=== PATIENT | male | born 1950 | race Caucasian/White ===

== ENCOUNTER 2019-08-12 14:29 | Inpatient (IN) | payer MEDICARE ==
[~2019-08-12] VITALS: Ht 180.3 cm; Wt 77.1 kg
[2019-08-12 13:40] VITALS: BP 233/121
[2019-08-12] MEDS ORDERED: LABETALOL HCL 100 MG TABLET. PO ONE (16:30)
[2019-08-12] MEDS ORDERED: ACETAMINOPHEN 325 MG TABLET. PO PRN (16:30)
[2019-08-12] MEDS ORDERED: ASPIRIN RECTAL 300 MG SUPP. PR PRN (16:30)
[2019-08-12] MEDS ORDERED: ACETAMINOPHEN 650 MG SUPP.RECT. PR PRN (16:30)
[2019-08-12 19:00] VITALS: BP 187/97
[2019-08-12 19:30] VITALS: BP 176/105
[2019-08-12 19:45] VITALS: BP 198/105
[2019-08-12 20:00] VITALS: BP 187/103
[2019-08-12] MEDS ORDERED: LABETALOL HCL 100 MG TABLET. PO SCH (21:00)
--- NOTE | 2019-08-12 21:28 | RAD ---
CT HEAD WO CONTRAST History: Change in NIH scale Comparison: Exam earlier the same day. Technique: Noncontrast CT imaging was performed of the head. Exposure: One or more of the following individualized dose reduction techniques were utilized for this examination: 1. Automated exposure control 2. Adjustment of the mA and/or kV according to patient size 3. Use of iterative reconstruction technique. Findings: No acute intracranial hemorrhage is identified. There is again scattered ill-defined low-density of the supratentorial parenchyma bilaterally, also old left basal ganglia lacunar infarct. However there appears to be a slightly greater degree of ill-defined low-density now of the right frontal parietal lobes. There are again old left cerebellar lacunar infarcts. There is also small old left temporal infarct with cortical involvement. Impression: 1. There is no evidence of acute intracranial hemorrhage. While subtle, ill-defined low-density of the right frontal parietal lobes appears somewhat increased which could be due to more recent/evolving ischemia. There are again old lacunar infarcts of the left cerebellum and left basal ganglia, also small old left temporal infarct. There is other ill-defined low-density of the supratentorial parenchyma likely component of chronic microvascular ischemic disease. Findings were discussed with patient's nurse Saul at 08/12/2019 9:25 PM. Electronically signed by: Tate Robb MD (08/12/2019 9:25 PM) [facility]
[2019-08-12 22:54] VITALS: BP 235/121
[2019-08-13 03:50] VITALS: BP 218/104
[2019-08-13 06:49] LABS: CHOLESTEROL/HDL RATIO 4.6
[2019-08-13 07:00] VITALS: BP 191/104
[2019-08-13] MEDS: ASPIRIN ENTERIC COATED 325 MG TABLET.DR. PO SCH (08:00)
--- NOTE | 2019-08-13 10:18 | RAD ---
BRAIN W/O CONTRAST History: CVA. Neurological deficits. Technique: Multiplanar, multi sequential MR imaging was performed of the brain without contrast. Comparison: CT August 12, 2019. Findings: Acute left paramedian frontoparietal infarcts distal ANNETTE and distal PHYSICIAN SUPPORT COORDINATOR territory. No acute intracranial hemorrhage. Chronic left basal ganglia lacunar infarct with hemosiderin staining. Chronic left cerebellar infarct with hemosiderin staining. Additional bilateral cerebellar small infarcts. Chronic left genu of the corpus callosum and left pericallosal body interface infarcts. Moderate additional multifocal T2/flair hyperintensities within the hemispheric white matter, most often due to chronic microvascular ischemia. Small chronic left posterior temporal infarct. Imaged orbits are unremarkable. Imaged paranasal sinuses and mastoid air cells are clear. Impression: 1. Acute left paramedian frontoparietal lobe infarcts. 2. Multiple supratentorial and infratentorial chronic infarcts. 3. Moderate sequela of chronic microvascular ischemia. FOR INTERNAL CODING PURPOSES Critical result: Findings discussed with patient's charge nurse at 08/13/2019 10:11 AM. RESULT CODE: (C) Electronically signed by: Kristian Lomax DO (08/13/2019 10:15 AM) [email or web address]
[2019-08-13 11:00] VITALS: BP 210/114
[2019-08-13] MEDS ORDERED: BARIUM SULFATE 40% (APPLE) 148 GM PWD. PO ONE (11:30)
--- NOTE | 2019-08-13 11:59 | PDOC2 ---
NEUROLOGY CONSULT Date of Admission Date of Admission DATE: 08/13/19 TIME: 11:47 Reason for Consult Reason for Consult: Stroke Referring Physician Referring Physician: Dr. Still Source Source: Caregiver, Chart review History of Present Illness History of Present Illness The patient is a 69-year-old right-handed male who presented yesterday to the [facility] emergency room. He had wakened at 1 AM and didn't feel quite right but went back to sleep. When he woke up later in the morning, he noticed dysarthria, ataxia, and bilateral leg weakness. He had trouble getting his words and thoughts out. I was not contacted about this patient until he reached [address], at 16:06. I wrote stroke orders. At 19:49, I was contacted that the patient had increased NIH scale. I ordered stat repeat CT and CTA as reviewed below. He continues to have right hemiplegia and aphasia. There is no prior history of stroke, seizure, or head injury according to his . Patient has been noncompliant with his blood pressure medicines. Past Medical History Cardiovascular: HTN ENT: Other (Dental problems) Past Surgical History Past Surgical History: Tonsillectomy Family History Family History: Cancer Social History Social History , works odd jobs at times, no tobacco or alcohol Current Medications Current Medications Current Medications Labetalol HCl (Trandate) 100 mg TID PO ; Start 08/12/19 at 21:00; Stop 08/13/19 at 08:18; Status DC Acetaminophen (Tylenol) 650 mg PRN Q6HRS PRN PO TEMP > 100.4F; Start 08/12/19 at 16:30 Acetaminophen (Tylenol Supp) 650 mg PRN Q4HRS PRN ND TEMP > 100.4F; Start 08/12/19 at 16:30 Aspirin (Ecotrin) 325 mg DAILYWBKFT PO ; Start 08/13/19 at 08:00 Aspirin (Aspirin Rectal Supp) 300 mg PRN DAILY PRN ND IF UNABLE TO TAKE PO Last administered on 08/13/19at 11:00; Start 08/12/19 at 16:30 Labetalol HCl (Trandate) 100 mg 1X ONCE PO Last administered on 08/12/19at 16: 45; Start 08/12/19 at 16:30; Stop 08/12/19 at 20:01; Status DC Barium Sulfate (Varibar Thin Liquid Apple) 148 gm 1X ONCE PO ; Start 08/13/19 at 11:30; Stop 08/13/19 at 11:31; Status DC Allergies Allergies: Coded Allergies: egg (Verified Allergy, Severe, Diarrhea, 08/12/19) melon (Verified Allergy, Severe, Diarrhea, 08/12/19) strawberry (Verified Allergy, Severe, Diarrhea, 08/12/19) Penicillins (Verified Allergy, Intermediate, 08/12/19) ROS Review of System Negative for fever, chills, weight loss, shortness of breath, chest pain, in digestion, hematochezia, melena, and dysuria. Full 14-point review of systems is negative. Physical Exam Physical Examination General: Well-developed, well-nourished white male in no acute distress HEENT: Normocephalic andatraumatic. Temporal arteriespulsatile and nontender. Neck: Supple without bruit, no meningismus Musculoskeletal: Stability:see neurologic. Gait exam:see neurologic. Tone:see neurologic.Strength:see neurologic. Neurological: Mental Status:orientation, memory, attention span/concentration, language, fund of knowledge: aphasic, follows a few commands. Cranial Nerves:Pupils equal and reactive to light, extraocular movements areintact, visual tripp are full to confrontation. Facial sensation is normal. There is no facial asymmetry. Vestibulo-ocular reflex is intact. Palate elevates and tongue protrudes in midline. All other cranial related problems are negative except as mentioned before.Reflexes:2+ and symmetric with flexor plantar responses. Motor:1/5 right hemiplegia. Coordination:Finger-nose finger and [id number] testing are normal. Rapid alternating movements and fine finger movements are intact. Gait:not tested. Sensory: responds to pinprick in all 4 extremities Vitals VITALS Vital Signs Date Time Temp Pulse Resp B/P (MAP) Pulse Ox O2 Delivery O2 Flow Rate FiO2 08/13/19 07:00 98.6 84 16 191/104 (133) 94 Room Air 98.6 Labs Labs Laboratory Tests Test 08/13/19 05:56 Triglycerides Level 87 mg/dL (0-150) Cholesterol Level 193 mg/dL (0-200) LDL Cholesterol, Calculated 134 mg/dL (0-100) VLDL Cholesterol, Calculated 17 mg/dL (0-40) Non-HDL Cholesterol Calculated 151 mg/dL (0-129) HDL Cholesterol 42 mg/dL (40-60) Cholesterol/HDL Ratio 4.6 Laboratory Tests Test 08/13/19 05:56 Triglycerides Level 87 mg/dL (0-150) Cholesterol Level 193 mg/dL (0-200) LDL Cholesterol, Calculated 134 mg/dL (0-100) VLDL Cholesterol, Calculated 17 mg/dL (0-40) Non-HDL Cholesterol Calculated 151 mg/dL (0-129) HDL Cholesterol 42 mg/dL (40-60) Cholesterol/HDL Ratio 4.[address] CODE STROKE HEAD WO, 08/12 at [facility] CT CODE STROKE HEAD WO History: Neuro deficits Comparison: None. Technique: Noncontrast CT imaging was performed of the head. Exposure: One or more of the following individualized dose reduction techniques were utilized for this examination: 1. Automated exposure control 2. Adjustment of the mA and/or kV according to patient size 3. Use of iterative reconstruction technique. Findings: No intracranial hemorrhage. No mass effect. No hydrocephalus. Chronic appearing bilateral small cerebellar infarcts. Chronic appearing left basal ganglia and left genu corpus callosal and periventricular frontal white matter infarcts. Moderate foci of decreased attenuation within hemispheric white matter, most often due to chronic microvascular ischemia. Focal hypoattenuation within the left posterior temporal/occipital lobe (series 2 image 13). Imaged orbits are unremarkable. Imaged paranasal sinuses and mastoid air cells are clear. Impression: 1. No acute intracranial hemorrhage. 2. Focal hyperattenuation within the left posterior temporal/occipital lobe, age indeterminant ischemia. Recommend brain MRI to further evaluate. 3. Chronic appearing bilateral cerebellar, left basal ganglia and left frontal periventricular infarcts. 4. Additional nonspecific white matter changes, most often due to chronic microvascular ischemia. CT ANGIOGRAPHY HEAD AND NECK, 08/12 at [facility] History: Speech difficulty and ataxia Technique: After bolus of intravenous contrast, volumetric CT data acquisition was acquired of the head and neck. Multiplanar reconstruction images to include MIP and 3-D reconstruction images are submitted. Exposure: One or more of the following individualized dose reduction techniques were utilized for this examination: 1. Automated exposure control 2. Adjustment of the mA and/or kV according to patient size 3. Use of iterative reconstruction technique. Comparison: None Any determination of stenosis is based on NASCET criteria. Head CTA: ICA: No stenosis, occlusion or aneurysm. Minimal carotid siphon atheromatous calcification. MCA: No stenosis, occlusion or aneurysm. ANNETTE: No stenosis, occlusion or aneurysm. Aplastic right A1 segment. TEMPERING MACHINE OPERATOR: No stenosis, occlusion or aneurysm. origin of the right posterior cerebral artery. Basilar artery: No stenosis, occlusion or aneurysm. Distal vertebral arteries: Left vertebral artery functionally ends in PICA. CT angiogram neck: Aortic arch: Minimal plaque within the aortic arch and branch vessels. Common carotid arteries: No stenosis, occlusion or dissection. Minimal left distal common carotid artery and carotid bulb atheromatous plaque. Internal carotid arteries: No stenosis, occlusion or dissection. External carotid arteries: Patent Vertebral arteries: Congenitally small left vertebral artery. Imaged lung apices are unremarkable. Soft tissues appear normal. Bones: Multilevel cervical spondylosis. Multifocal carious dentition and periodontal disease. Impression: 1. No arterial stenosis or occlusion within the head or neck. 2. Mild scattered atheromatous disease. CT HEAD WO CONTRAST, 08/12/192124 No acute intracranial hemorrhage is identified. There is again scattered ill-defined low-density of the supratentorial parenchyma bilaterally, also old left basal ganglia lacunar infarct. However there appears to be a slightly greater degree of ill-defined low-density now of the right frontal parietal lobes. There are again old left cerebellar lacunar infarcts. There is also small old left temporal infarct with cortical involvement. Impression: 1. There is no evidence of acute intracranial hemorrhage. While subtle, ill-defined low-density of the right frontal parietal lobes appears somewhat increased which could be due to more recent/evolving ischemia. There are again old lacunar infarcts of the left cerebellum and left basal ganglia, also small old left temporal infarct. There is other ill-defined low-density of the supratentorial parenchyma likely component of chronic microvascular ischemic disease. Findings were discussed with patient's nurse Saul at 08/12/2019 9:25 PM. BRAIN W/O CONTRAST History: CVA. Neurological deficits. Technique: Multiplanar, multi sequential MR imaging was performed of the brain without contrast. Comparison: CT August 12, 2019. Findings: Acute left paramedian frontoparietal infarcts distal ANNETTE and distal TEMPERING MACHINE OPERATOR territory. No acute intracranial hemorrhage. Chronic left basal ganglia lacunar infarct with hemosiderin staining. Chronic left cerebellar infarct with hemosiderin staining. Additional bilateral cerebellar small infarcts. Chronic left genu of the corpus callosum and left pericallosal body interface infarcts. Moderate additional multifocal T2/flair hyperintensities within the hemispheric white matter, most often due to chronic microvascular ischemia. Small chronic left posterior temporal infarct. Imaged orbits are unremarkable. Imaged paranasal sinuses and mastoid air cells are clear. Impression: 1. Acute left paramedian frontoparietal lobe infarcts. 2. Multiple supratentorial and infratentorial chronic infarcts. 3. Moderate sequela of chronic microvascular ischemia. Assessment/Plan Assessment/Plan Impression: Acute left paramedian frontoparietal lobe infarcts. CT angiogram fails to show a source, weight echocardiogram Multiple supratentorial and infratentorial chronic infarct, chronic microvascular ischemia. Recommendations: Permissive hypertension Rehabilitation modalities Echocardiogram Aspirin, per rectum until able to take oral Also see stroke orders I discussed with patient's . Thank you for letting me help with the patient care. JADE SANTAMARIA MD Aug 13, 2019 11:59
--- NOTE | 2019-08-13 12:13 | HP ---
ADMIT DATE: 08/12/2019 HISTORY OF PRESENT ILLNESS: The patient is a 69-year-old male patient who presented to the Emergency Room of [facility] yesterday with a complaint of difficulty with speech and lower extremity weakness and ataxia that he first noticed the morning of admission when he tried to get out of the bed, stated that at one point in time had woken up during the night about 1:00 a.m., did not feel quite right, but went back to sleep. He stated that he woke up the morning of admission, went to get out of bed to go to the bathroom, but he was unable to balance his legs, so crawled to the bathroom. He states that he also had difficulty formulating words and thoughts. He denied any specific lateralizing weakness. He apparently was evaluated at [facility] Room where he has had a CT scan of the head, which showed that the patient has no acute intracranial hemorrhage. There is focal hyperattenuation within the left posterior temporal occipital lobe, age indeterminate, has chronic appearing bilateral cerebellar and left basal ganglia and left frontal periventricular infarcts. He has also additional nonspecific white matter changes most often due to chronic microvascular ischemia. The CT angio of the head and neck showed no arterial stenosis or occlusion within and neck, mild scattered atheromatous disease. Given this finding, the patient was transferred to [facility] to arrange for an MRI of the brain and also to consult the neurologist. PAST MEDICAL HISTORY: Significant for hypertension. PAST SURGICAL HISTORY: Significant for hernia repair as well as tonsillectomy. ALLERGIES: HE IS ALLERGIC TO PENICILLIN. MEDICATIONS: He was on no medication by prescription or otherwise. FAMILY HISTORY: Noncontributory. SOCIAL HISTORY: He lives with his common-law for the last 10 years. He does not smoke, drink alcohol or use any recreational drugs. He is retired. REVIEW OF SYSTEMS: Unobtainable. PHYSICAL EXAMINATION: GENERAL: On arrival to the Emergency Room, he looked well and was clearly in no apparent respiratory distress. There was no pallor, jaundice, cyanosis or thyromegaly. No jugular venous distention. No lower limb edema. VITAL SIGNS: His heart rate was 90, his blood pressure was extremely high at 228/130, temperature was 98, respiratory rate was 16, and oxygen saturation was 98%. HEAD, EYES, EARS, NOSE AND THROAT: Showed normocephalic, atraumatic. NECK: Supple. CARDIAC: Normal first and second heart sounds. No gallop, rub or murmur. CHEST: Clear to auscultation. No crepitation or rhonchi. ABDOMEN: Distended, soft, nontender. NEUROLOGIC: He was awake, alert, has expressive aphasia, has right-sided hemiplegia. LABORATORY DATA: His lab work showed a serum sodium 141, potassium 4.1, chloride 103, bicarbonate 29, anion gap of 9, BUN 16, creatinine 1.3, estimated GFR was 57 mL per minute, his glucose 163, calcium was 9. Total bilirubin, AST, ALT, alkaline phosphatase were normal. Total protein was 7.8, albumin 3.8. His chest x-ray as CT scan of the head showed that he has no acute intracranial hemorrhage. Focal hyperattenuation within the left posterior temporal and occipital lobes, age indeterminate. Recommend brain MRI to further evaluate. He has also chronic appearing bilateral cerebellar, left basal ganglia and left frontal periventricular infarcts, had additional nonspecific white matter changes, most often due to chronic microvascular ischemia. CT angio of the head and neck showed no evidence of arterial stenosis or occlusion within the head and neck, mild scattered atheromatous disease. The patient was transferred to [facility] for further evaluation and treatment. We will consult Dr. Shafer. We will also consult physical and occupational therapist as well as the speech therapist. He was initially admitted to CVICU to start him on a Cardene drip versus starting him on oral antihypertensive medication. BLUE DOMINGUEZ MD DR: ETCOR/elías JOB#: [id number] / [id number]
--- NOTE | 2019-08-13 14:00 | NUR ---
Pt began having intermittent involuntary muscle tremors this afternoon. Pt has not lost consciousness during these episodes. Pt was able to verbally communicate with this RN that be is able to tell when the tremors start. Notified Dr. Shafer. No further orders received at this time. Will continue to monitor.
--- NOTE | 2019-08-13 14:22 | NUR ---
SS following for discharge planning. SS reviewed pt chart. Pt is from home with spouse and is currently on room air. PT/OT ordered. SS will continue to follow for discharge planning.
[2019-08-13 15:00] VITALS: BP 199/103
--- NOTE | 2019-08-13 16:05 | RAD ---
Examination: VIDEO SWALLOW STUDY History: Dysphagia Comparison/Correlation: None Findings: Fluoroscopy was utilized for 2.6 minutes. The adrenal swallows performed using thin liquid, thick liquid, paste, and cracker coated forms of barium. Oropharyngeal motility is unremarkable. No significant residuals. No aspiration. Minimal penetration which clears noted with thin liquid barium. Impression: No aspiration. Electronically signed by: Carlos Chanel MD (08/13/2019 4:02 PM) [facility]
--- NOTE | 2019-08-13 17:35 | PN ---
DATE: 08/13/2019 SUBJECTIVE: The patient was seen yesterday at the Emergency Room of [facility] with expressive aphasia and sided weakness, had a CT scan, which showed that he has high attenuation on the left occipital and parietal lobes; and therefore, he was transferred to [facility]. He has had an MRI of the brain, which basically showed acute left paramedian frontoparietal lobe infarct, multiple supratentorial and infratentorial chronic infarct, moderate sequelae of chronic microvascular ischemia. His CT scan of the head showed that there is no evidence of acute intracranial hemorrhage while subtle ill-defined low density of the right frontoparietal lobes appear somewhat increased which could be due to more recent evolving ischemia. There are again old lacunar infarcts of the left cerebellum and left basal ganglia and small old left temporal infarct. There is other ill-defined low density of the supratentorial parenchyma, likely component of chronic microvascular ischemic disease. He was seen by Dr. Shafer, who apparently recommended to keep his blood pressure at the higher level. He has also had his fasting lipid profile done that showed his serum triglycerides of 87, total cholesterol 193, LDL was 134, VLDL was 17, HDL 42 and ratio 4.6. He was seen by the physical and occupational therapy as well as the speech therapy and he is scheduled for swallowing evaluation. When I saw him today, he was resting slightly propped up in bed, in no apparent respiratory distress. No pallor, jaundice, cyanosis or thyromegaly. No jugular venous distention. No limb edema. VITAL SIGNS: Her heart rate was 84, blood pressure was 191/104, temperature was 98.6, respiratory rate was 16, and oxygen saturation was 94%. HEAD, EYES, EARS, NOSE AND THROAT: Showed normocephalic, atraumatic. NECK: Supple. HEART: Showed normal first and second heart sounds. No gallop or murmur. CHEST: Clear to auscultation. No crepitation or rhonchi. ABDOMEN: Distended, soft, nontender. NEUROLOGIC: He has flaccid paralysis of his right upper and right lower extremity has also expressive aphasia. ASSESSMENT: 1. Hypertension. 2. Hyperlipidemia. 3. Multiple previous infarct. 4. Acute left paramedian frontoparietal infarct involving the distal anterior cerebral artery and distal posterior cerebral artery territory with no acute intracranial hemorrhage. PLAN: To await the evaluation by the physical therapy, occupational therapy and speech therapy and obviously he eventually will need an inpatient rehabilitation probably [facility] or some other rehab center. BLUE DOMINGUEZ MD DR: ECTOR/elías JOB#: [id number] / [id number]
[2019-08-13 19:15] VITALS: BP 185/106
[2019-08-13 23:22] VITALS: BP 203/110
[2019-08-14 03:15] VITALS: BP 174/99
[2019-08-14 05:27] LABS: HEMATOCRIT 48.8 % (39.0-53.0); HEMOGLOBIN 16.4 g/dL (13.0-17.5); RED BLOOD COUNT 5.57 x10^6/uL (4.30-5.70); RED CELL DISTRIBUTION WIDTH 12.9 % (11.5-14.5); WHITE BLOOD COUNT 11.5 x10^3/uL (4.0-11.0)
[2019-08-14 06:06] LABS: ALBUMIN 3.8 g/dL (3.4-5.0); ALBUMIN/GLOBULIN RATIO 0.9 (1.0-1.7); CREATININE 1.4 mg/dL (0.7-1.3); GFR 50.2; POTASSIUM 3.7 mmol/L (3.5-5.1); TOTAL PROTEIN 8.2 g/dL (6.4-8.2)
[2019-08-14 07:00] VITALS: BP 212/88
--- NOTE | 2019-08-14 09:25 | PN ---
DATE: 08/14/2019 SUBJECTIVE: The patient is currently having his EEG done. Apparently, has abnormal involuntary muscle tremors yesterday afternoon and therefore he was scheduled for EEG this morning. He did have a video swallowing evaluation, which showed no aspiration. He was evaluated by the community mental health social worker; however, no arrangement has been made yet. PHYSICAL EXAMINATION: GENERAL: On examining him, he looked well and was clearly in no apparent respiratory distress. No pallor, jaundice, cyanosis or thyromegaly. No jugular venous distention nor edema. VITAL SIGNS: Her heart rate was 98, blood pressure was 212/88, temperature was 98.4, respiratory rate was 18 and oxygen saturation was 96%. HEAD, EYES, EARS, NOSE AND THROAT: Normocephalic, atraumatic. NECK: Supple. CARDIAC: Normal first and second heart sounds. No gallop, rub or murmur. CHEST: Clear to auscultation. No crepitation or rhonchi. ABDOMEN: Distended, soft, nontender. NEUROLOGIC: He is awake, alert, continued to have expressive aphasia, although he does mouth some words occasionally. He has right-sided hemiplegia. His intake and output are incompletely recorded. LABORATORY DATA: His lab work as of this morning showed a white cell count of 11,500, hemoglobin 16, hematocrit 49, MCV 88 and platelet count 249,000. Serum sodium 140, potassium 3.7, chloride 103, bicarbonate 26, anion gap of 11, BUN 17, creatinine 1.4, estimated GFR was 50 mL per minute, his glucose 156, calcium was 9. Total bilirubin, AST, ALT, alkaline phosphatase were normal. Total protein was 8.2 and albumin was 3.8. ASSESSMENT: Flaccid paralysis of his right upper and right lower extremity, has expressive aphasia secondary to acute left paramedian frontoparietal infarct involving the distal anterior cerebral artery and distal posterior cerebral artery territory with no acute intracranial hemorrhage. OTHER MEDICAL PROBLEMS: Include: A. Hypertension. B. Hyperlipidemia. C. Multiple previous infarcts. PLAN: To continue with physical and occupational therapy, EEG report and obviously if the patient was accepted in a rehab center, we will discharge him today. BLUE DOMINGUEZ MD DR: ECTOR/elías JOB#: [id number] / [id number]
[2019-08-14] MEDS: ASPIRIN ENTERIC COATED 325 MG TABLET.DR. PO SCH (09:58)
--- NOTE | 2019-08-14 10:02 | PDOC ---
PROGRESS NOTES Assessment Acute left paramedian frontoparietal lobe infarcts. CT angiogram fails to show a source, weight echocardiogram Multiple supratentorial and infratentorial chronic infarct, chronic microvascular ischemia. Tremulous episodes yesterday, probably clonus, EEG is negative for seizures Plan Permissive hypertension Rehabilitation modalities Echocardiogram Cardiac evauationl for embolic source, possibly including transesophageal echocardiogram and LINQ monitoring Aspirin Statin Also see stroke orders Subjective none Objective Vital Signs Date Time Temp Pulse Resp B/P (MAP) Pulse Ox O2 Delivery O2 Flow Rate FiO2 08/14/19 07:00 98.4 98 18 212/88 (129) 96 Room Air 98.4 Intake and Output 08/14/19 07:00 Intake Total 0 ml Balance 0 ml Intake Oral 0 ml # Voids 3 PHYSICAL EXAM Alert. Smiles, follows a few commands, nonverbal PERRL. EOMI. CN: no focal findings. Muscle tone: normal. Muscle strength: 2/5 right hemiplegia DTR: 2+ Plantar reflex: Flexor Gait: not examined in bed. Sensory exam: no abnormal findings. No cerebellar signs elicited. Review of Relevant I have reviewed the following items lavon (where applicable) has been applied. Labs Laboratory Tests Test 08/13/19 05:56 08/14/19 04:40 Triglycerides Level 87 mg/dL (0-150) Cholesterol Level 193 mg/dL (0-200) LDL Cholesterol, Calculated 134 mg/dL (0-100) VLDL Cholesterol, Calculated 17 mg/dL (0-40) Non-HDL Cholesterol Calculated 151 mg/dL (0-129) HDL Cholesterol 42 mg/dL (40-60) Cholesterol/HDL Ratio 4.6 White Blood Count 11.5 x10^3/uL (4.0-11.0) Red Blood Count 5.57 x10^6/uL (4.30-5.70) Hemoglobin 16.4 g/dL (13.0-17.5) Hematocrit 48.8 % (39.0-53.0) Mean Corpuscular Volume 88 fL (79-100) Mean Corpuscular Hemoglobin 30 pg (25-35) Mean Corpuscular Hemoglobin Concent 34 g/dL (31-37) Red Cell Distribution Width 12.9 % (11.5-14.5) Platelet Count 245 x10^3/uL (140-400) Sodium Level 140 mmol/L (136-145) Potassium Level 3.7 mmol/L (3.5-5.1) Chloride Level 103 mmol/L (98-107) Carbon Dioxide Level 26 mmol/L (21-32) Anion Gap 11 (6-14) Blood Urea Nitrogen 17 mg/dL (8-26) Creatinine 1.4 mg/dL (0.7-1.3) Estimated GFR (Cockcroft-Gault) 50.2 BUN/Creatinine Ratio 12 (6-20) Glucose Level 156 mg/dL (70-99) Calcium Level 9.0 mg/dL (8.5-10.1) Total Bilirubin 1.0 mg/dL (0.2-1.0) Aspartate Amino Transf (AST/SGOT) 22 U/L (15-37) Alanine Aminotransferase (ALT/SGPT) 19 U/L (16-63) Alkaline Phosphatase 90 U/L (46-116) Total Protein 8.2 g/dL (6.4-8.2) Albumin 3.8 g/dL (3.4-5.0) Albumin/Globulin Ratio 0.9 (1.0-1.7) Laboratory Tests Test 08/14/19 04:40 White Blood Count 11.5 x10^3/uL (4.0-11.0) Red Blood Count 5.57 x10^6/uL (4.30-5.70) Hemoglobin 16.4 g/dL (13.0-17.5) Hematocrit 48.8 % (39.0-53.0) Mean Corpuscular Volume 88 fL (79-100) Mean Corpuscular Hemoglobin 30 pg (25-35) Mean Corpuscular Hemoglobin Concent 34 g/dL (31-37) Red Cell Distribution Width 12.9 % (11.5-14.5) Platelet Count 245 x10^3/uL (140-400) Sodium Level 140 mmol/L (136-145) Potassium Level 3.7 mmol/L (3.5-5.1) Chloride Level 103 mmol/L (98-107) Carbon Dioxide Level 26 mmol/L (21-32) Anion Gap 11 (6-14) Blood Urea Nitrogen 17 mg/dL (8-26) Creatinine 1.4 mg/dL (0.7-1.3) Estimated GFR (Cockcroft-Gault) 50.2 BUN/Creatinine Ratio 12 (6-20) Glucose Level 156 mg/dL (70-99) Calcium Level 9.0 mg/dL (8.5-10.1) Total Bilirubin 1.0 mg/dL (0.2-1.0) Aspartate Amino Transf (AST/SGOT) 22 U/L (15-37) Alanine Aminotransferase (ALT/SGPT) 19 U/L (16-63) Alkaline Phosphatase 90 U/L (46-116) Total Protein 8.2 g/dL (6.4-8.2) Albumin 3.8 g/dL (3.4-5.0) Albumin/Globulin Ratio 0.9 (1.0-1.7) Medications Current Medications Labetalol HCl (Trandate) 100 mg TID PO ; Start 08/12/19 at 21:00; Stop 08/13/19 at 08:18; Status DC Acetaminophen (Tylenol) 650 mg PRN Q6HRS PRN PO TEMP > 100.4F; Start 08/12/19 at 16:30 Acetaminophen (Tylenol Supp) 650 mg PRN Q4HRS PRN WI TEMP > 100.4F; Start 08/12/19 at 16:30 Aspirin (Ecotrin) 325 mg DAILYWBKFT PO ; Start 08/13/19 at 08:00 Aspirin (Aspirin Rectal Supp) 300 mg PRN DAILY PRN WI IF UNABLE TO TAKE PO Last administered on 08/13/19at 11:00; Start 08/12/19 at 16:30 Labetalol HCl (Trandate) 100 mg 1X ONCE PO Last administered on 08/12/19at 16:45; Start 08/12/19 at 16:30; Stop 08/12/19 at 20:01; Status DC Barium Sulfate (Varibar Thin Liquid Apple) 148 gm 1X ONCE PO Last administered on 08/13/19at 13:45; Start 08/13/19 at 11:30; Stop 08/13/19 at 11:31; Status DC Vitals/I & O Vital Sign - Last 24 Hours 08/13/19 08/13/19 08/13/19 08/13/19 11:00 15:00 19:15 23:13 Temp 98.1 98.3 98.8 98.1 98.3 98.8 Pulse 79 80 85 Resp 16 16 20 B/P (MAP) 210/114 (146) 199/103 (135) 185/106 (132) Pulse Ox 94 97 95 O2 Delivery Room Air Room Air Room Air Room Air 08/13/19 08/14/19 08/14/19 23:22 03:15 07:00 Temp 99.4 99.1 98.4 99.4 99.1 98.4 Pulse 87 75 98 Resp 16 16 18 B/P (MAP) 203/110 (141) 174/99 (124) 212/88 (129) Pulse Ox 93 93 96 O2 Delivery Room Air Room Air Room Air Intake and Output 08/13/19 08/13/19 08/14/19 15:00 23:00 07:00 Intake Total 0 ml Balance 0 ml JADE SANTAMARIA MD Aug 14, 2019 10:02
--- NOTE | 2019-08-14 10:59 | EEG ---
DATE OF SERVICE: 08/14/2019 EEG NUMBER: [id number] OBJECTIVE: The patient is a 69-year-old male with new stroke, who has been having some tremulous movements on the right side, rule out seizures. DESCRIPTION: This is a digital study. Electrodes are placed according to the international 10-20 system. Bipolar and referential montages are available. INTERPRETATION: The waking background consists of 5-6 Hz, 50-100 microvolt activity, symmetrically distributed over parietooccipital regions and reactive to eye opening. Hyperventilation and intermittent photic stimulation are noncontributory. Sleep is not achieved. IMPRESSION: This electroencephalogram with the patient awake only, is abnormal because of a mild, diffuse disturbance of cerebral activity consistent with any of a variety of toxic or metabolic encephalopathies. There is no focal, paroxysmal, or epileptiform activity. Thank you for letting us help with the patient's care. JADE SANTAMARIA MD DR: LOYDA/elías JOB#: [id number] / [id number]
[2019-08-14 11:23] VITALS: BP 210/104
--- NOTE | 2019-08-14 13:20 | PDOC2 ---
PATRICIA THOMAS SOLE LAYER 08/14/19 1320: CARDIAC CONSULT DATE OF CONSULT Date of Consult DATE: 08/14/19 TIME: 13:14 REASON FOR CONSULT Reason for Consult: Multiembolic stroke, consider DIXIE, LINQ REFERRING PHYSICIAN Referring Physician: Dr. Shafer SOURCE Source: Chart review, Patient HISTORY OF PRESENT ILLNESS HISTORY OF PRESENT ILLNESS This is a 69 yo male who presented to [facility] secondary to speech difficulty, ataxia, and weakness that began upon awakening the day or arrival. Had difficulty getting words out. Blood pressure significantly elevated upon arrival.CT head at [facility] without acute hemorrhage. Patient was transferred to [facility] for MRI of the brain and neurology evaluation. MRI notable for acute left paramedian frontoparietal lobe infarcts and multiple supratentorial and infratentorial chronic infarct, chronic microvascular ischemia. Given multiple embolic strokes, we were consulted for evaluation for cardiac source. PAST MEDICAL HISTORY Cardiovascular: HTN PAST SURGICAL HISTORY Past Surgical History: Tonsillectomy FAMILY HISTORY Family History: Hypertension SOCIAL HISTORY Smoke: No ALCOHOL: none Drugs: None Lives: with Family ALLERGIES ALLERGIES: Coded Allergies: egg (Verified Allergy, Severe, Diarrhea, 08/12/19) melon (Verified Allergy, Severe, Diarrhea, 08/12/19) strawberry (Verified Allergy, Severe, Diarrhea, 08/12/19) Penicillins (Verified Allergy, Intermediate, 08/12/19) ROS Review of System 14 point ROS conducted with pertinent positives noted above in HPI PHYSICAL EXAM General: Alert, Cooperative, No acute distress HEENT: Atraumatic, Mucous membr. moist/pink Lungs: Clear to auscultation Heart: Regular rate, Normal S1, Normal S2 Abdomen: Soft, No tenderness Extremities: No edema, Normal pulses Skin: No significant lesion Neuro: Other (left sided weakness, expressive aphasia ) Psych/Mental Status: Mood NL MUSCULOSKELETAL: Osteoarthritic changes both hands VITALS/I&O VITALS/I&O: Vital Signs Date Time Temp Pulse Resp B/P (MAP) Pulse Ox O2 Delivery O2 Flow Rate FiO2 08/14/19 11:23 97.9 100 18 210/104 (139) 99 Room Air 97.9 I & O 08/13/19 08/13/19 08/14/19 15:00 23:00 07:00 Intake Total 0 ml Balance 0 ml LABS Lab: Laboratory Tests Test 08/14/19 04:40 White Blood Count 11.5 x10^3/uL (4.0-11.0) H Red Blood Count 5.57 x10^6/uL (4.30-5.70) Hemoglobin 16.4 g/dL (13.0-17.5) Hematocrit 48.8 % (39.0-53.0) Mean Corpuscular Volume 88 fL (79-100) Mean Corpuscular Hemoglobin 30 pg (25-35) Mean Corpuscular Hemoglobin Concent 34 g/dL (31-37) Red Cell Distribution Width 12.9 % (11.5-14.5) Platelet Count 245 x10^3/uL (140-400) Sodium Level 140 mmol/L (136-145) Potassium Level 3.7 mmol/L (3.5-5.1) Chloride Level 103 mmol/L (98-107) Carbon Dioxide Level 26 mmol/L (21-32) Anion Gap 11 (6-14) Blood Urea Nitrogen 17 mg/dL (8-26) Creatinine 1.4 mg/dL (0.7-1.3) H Estimated GFR (Cockcroft-Gault) 50.2 BUN/Creatinine Ratio 12 (6-20) Glucose Level 156 mg/dL (70-99) H Calcium Level 9.0 mg/dL (8.5-10.1) Total Bilirubin 1.0 mg/dL (0.2-1.0) Aspartate Amino Transferase (AST) 22 U/L (15-37) Alanine Aminotransferase (ALT) 19 U/L (16-63) Alkaline Phosphatase 90 U/L (46-116) Total Protein 8.2 g/dL (6.4-8.2) Albumin 3.8 g/dL (3.4-5.0) Albumin/Globulin Ratio 0.9 (1.0-1.7) L Laboratory Tests 08/14/19 04:40 Laboratory Tests 08/14/19 04:40 ASSESSMENT/PLAN ASSESSMENT/PLAN 1. Acute left paramedian frontoparietal lobe infarcts 2. Multiple supratentorial and infratentorial chronic infarct 3. Hypertensive urgency 4. Hyperlipidemia 5. GRUPO vs CKD Recommendations Await echo Blood pressure parameters as per neuro Hydralazine IV PRN PT/OT/ST ASA, statin With chronic stroke and presentation with acute embolic stroke, will proceed wit h DIXIE. R/b/a discussed with patient and and they are agreeable Will also need implantable loop recorder for long-term rhyhtm monitoring to evaluate for contributing arrhythmias. Will scheduled these for tomorrow. RUSSELL BARTLETT MD 08/14/19 1630: CARDIAC CONSULT ASSESSMENT/PLAN ASSESSMENT/PLAN Patient seen and examined. Agree with AIRPLANE REFUELER's assessment and plan. Patient with acute CVA as well as chronic infarct appear to be embolic 2-D echo showed normal LV function Agree with DIXIE to definitively rule out intracardiac source of thrombus and loop recorder implantation for prolonged monitoring to rule out atrial fibrillation Patient unable to give informed consent due to his stroke and agitation Patient's significant other and daughter would like to discuss and get back to us since patient apparently did not want any aggressive measures in the past Thank you for your consultation PATRICIA THOMAS APRN Aug 14, 2019 13:20 RUSSELL BARTLETT MD Aug 14, 2019 16:30
[2019-08-14] MEDS: hydrALAZINE 20 MG/ML VIAL. IVP PRN (13:36)
[2019-08-14] MEDS ORDERED: BENZOCAINE ONE 20% MUCOSAL SPRAY. MM (15:00)
[2019-08-14] MEDS ORDERED: LIDOCAINE 2% TOPICAL JELLY 5GM TUBE. TP ONE (15:00)
[2019-08-14] MEDS ORDERED: LIDOCAINE 2% VISCOUS 15 ML SOLUTION. MM ONE (15:00)
[2019-08-14] MEDS ORDERED: 0.9 % SODIUM CHLORIDE 10 ML DISP.SYRIN. IV PRN (15:00)
--- NOTE | 2019-08-14 15:12 | CARD ---
MR#: [id number] Date of Study: 08/14/2019 Ordering Physician: JADE SANTAMARIA, Referring Physician: JADE SANTAMARIA, Tech: Carolee Jackman APPROVED REPORT EXAM: Two-dimensional and M-mode echocardiogram with Doppler and color Doppler. Other Information Quality : AverageHR: 73bpm INDICATION CVA/TIA 2D DIMENSIONS RVDd3.5 (2.9-3.5cm)Left Atrium(2D)2.9 (1.6-4.0cm) IVSd1.2 (0.7-1.1cm)Aortic Root(2D)3.5 (2.0-3.7cm) LVDd4.4 (3.9-5.9cm)LVOT Diameter2.1 (1.8-2.4cm) PWd1.0 (0.7-1.1cm)LVDs2.9 (2.5-4.0cm) FS (%) 32.3 %SV53.1 ml LVEF(%)60.7 (>50%) Aortic Valve AoV Peak Clarke.103.0cm/sAoV VTI17.8cm AO Peak GR.4.2mmHgLVOT VTI 20.38cm AO Mean GR.3mmHg Mitral Valve MV E Cvojgpqz25.5cm/sMV DECEL [id number] MV A Wbkksjiq12.7cm/sE/A Ratio0.7 TDI Lateral E' P. V5.41cm/sMedial E' P. V5.28cm/s E/Lateral E'9.5E/Medial E'9.8 Tricuspid Valve TR P. [id number]/sRAP [id number] TR Peak Gr.04fnKdLUOD73baTn Pulmonary Vein S1 Pdhfezug91.7cm/sS2 Gsdjjzdk87.96cm/s D2 Nihcgsep57.0cm/sPVa [id number] LEFT VENTRICLE The left ventricle is normal size. There is mild concentric left ventricular hypertrophy. The left ve ntricular systolic function is normal. The Ejection Fraction is 55%. There is normal LV segmental wal l motion. Transmitral Doppler flow pattern is Grade I-abnormal relaxation pattern. RIGHT VENTRICLE The right ventricle is normal size. There is normal right ventricular wall thickness. The right ventr icular systolic function is normal. ATRIA The left atrium is borderline dilated. The right atrium is mildly dilated. The interatrial septum is intact with no evidence for an atrial septal defect or patent foramen ovale as noted on 2-D or Dopple r imaging. AORTIC VALVE The aortic valve is not well visualized. Doppler and Color Flow revealed no significant aortic regurg itation. There is no significant aortic valvular stenosis. MITRAL VALVE The mitral valve is normal in structure and function. There is no evidence of mitral valve prolapse. There is no mitral valve stenosis. Doppler and Color Flow revealed no mitral valve regurgitation note d. TRICUSPID VALVE The tricuspid valve is normal in structure and function. Doppler and Color Flow revealed trace tricus pid regurgitation with an estiamted PAP of 21 mmHg. There is no tricuspid valve stenosis. PULMONIC VALVE The pulmonic valve is not well visualized. Doppler and Color Flow revealed no pulmonic valvular regur gitation. GREAT VESSELS The aortic root is normal in size. The IVC was not visualized. PERICARDIAL EFFUSION There is no evidence of significant pericardial effusion. Critical Notification Critical Value: No <Conclusion> The left ventricular systolic function is normal. The Ejection Fraction is 55%. There is normal LV segmental wall motion. Transmitral Doppler flow pattern is Grade I-abnormal relaxation pattern. Trace tricuspid regurgitation with an estiamted PAP of 21 mmHg. There is no evidence of significant pericardial effusion. Signed by : Basil Alexis, Electronically Approved : 08/14/2019 15:12:22
[2019-08-14 15:49] VITALS: BP 188/106
[2019-08-14 19:40] VITALS: BP 212/118
[2019-08-14] MEDS: ATORVASTATIN CALCIUM 10 MG TABLET. PO SCH (20:38)
[2019-08-14 23:51] VITALS: BP 195/114
[2019-08-15 01:08] LABS: HEMOGLOBIN A1C 6.9 % (4.8-5.6)
[2019-08-15 03:55] VITALS: BP 175/95
[2019-08-15] MEDS ORDERED: IV RINGERS,LACTATED 1000ML 1,000 ML IV SCH (07:00)
[2019-08-15 07:30] VITALS: BP 192/124
[2019-08-15] MEDS: ASPIRIN ENTERIC COATED 325 MG TABLET.DR. PO SCH (08:00)
--- NOTE | 2019-08-15 09:30 | PDOC ---
PROGRESS NOTES Subjective Subjective pt says i am going to get you ,repeatedly Objective Objective Vital Signs Date Time Temp Pulse Resp B/P (MAP) Pulse Ox O2 Delivery O2 Flow Rate FiO2 08/15/19 07:30 99.1 85 18 192/124 (146) 94 Room Air 99.1 Intake and Output 08/15/19 07:00 Intake Total 50 ml Balance 50 ml Intake Oral 50 ml # Voids 3 Physical Exam Abdomen: Soft, No tenderness Heart: Regular rate, Normal S1, Normal S2 Extremities: No edema, Normal pulses General: Alert, Cooperative, No acute distress HEENT: Atraumatic, Mucous membr. moist/pink Lungs: Clear to auscultation MUSCULOSKELETAL: Osteoarthritic changes both hands Neuro: Other (rt sided weakness, expressive aphasia ) Psych/Mental Status: Mood NL Skin: No significant lesion Assessment Assessment ASSESSMENT: Flaccid paralysis of his right upper and right lower extremity, has expressive aphasia secondary to acute left paramedian frontoparietal infarct involving the distal anterior cerebral artery and distal posterior cerebral artery territory with no acute intracranial hemorrhage. OTHER MEDICAL PROBLEMS: A. Hypertension. B. Hyperlipidemia. C. Multiple previous infarcts. PLAN: DIXIE today rehab consult. spoke with pts daughter. covering for dr acosta. To continue with physical and occupational therapy, EEG report and obviously if the patient was accepted in a rehab center, we will discharge him today. Comment Review of Relevant I have reviewed the following items lavon (where applicable) has been applied. Medications Current Medications Atorvastatin Calcium (Lipitor) 10 mg QHS PO Last administered on 08/14/19at 20:38; Start 08/14/19 at 21:00 Benzocaine (Hurricaine One) 2 spray 1X ONCE MM ; Start 08/14/19 at 15:00; Stop 08/14/19 at 15:06; Status DC Hydralazine HCl (Apresoline Inj) 10 mg PRN Q4HRS PRN IVP ELEVATED BP, SEE COMMENTS Last administered on 08/14/19at 13:36; Start 08/14/19 at 13:30 Lidocaine HCl (Viscous Lidocaine) 15 ml 1X ONCE MM ; Start 08/14/19 at 15:00; Stop 08/14/19 at 15:06; Status DC Lidocaine HCl (Xylocaine 2% Topical 5gm Tube) 1 eben 1X ONCE TP ; Start 08/14/19 at 15:00; Stop 08/14/19 at 15:06; Status DC Ringer's Solution 1,000 ml @ 50 mls/hr Q20H IV ; Start 08/15/19 at 07:00; Stop 08/15/19 at 18:59 Sodium Chloride (Normal Saline Flush) 10 ml QSHIFT PRN IV AFTER MEDS AND BLOOD DRAWS; Start 08/14/19 at 15:00 Vitals/I & O Vital Sign - Last 24 Hours 08/14/19 08/14/19 08/14/19 08/14/19 11:23 13:36 15:49 19:40 Temp 97.9 98.0 99.0 97.9 98.0 99.0 Pulse 100 100 88 84 Resp 18 18 B/P (MAP) 210/104 (139) 210/104 188/106 (133) 212/118 (149) Pulse Ox 99 100 95 O2 Delivery Room Air Room Air Room Air 08/14/19 08/14/19 08/15/19 08/15/19 20:00 23:51 03:55 07:30 Temp 98.3 97.7 99.1 98.3 97.7 99.1 Pulse 83 81 85 Resp 18 18 B/P (MAP) 195/114 (141) 175/95 (121) 192/124 (146) Pulse Ox 95 93 94 O2 Delivery Room Air Room Air Room Air Room Air Intake and Output 08/14/19 08/14/19 08/15/19 15:00 23:00 07:00 Intake Total 0 ml 50 ml Balance 0 ml 50 ml RENU HYDE MD Aug 15, 2019 09:29
--- NOTE | 2019-08-15 10:47 | PDOC ---
PROGRESS NOTES Assessment Acute left paramedian frontoparietal lobe infarcts. CT angiogram fails to show a source, weight echocardiogram Multiple supratentorial and infratentorial chronic infarct, chronic microvascul ar ischemia. Tremulous episodes, probably clonus, EEG is negative for seizures Daughter has noticed tremor in the past, describes essential tremor, not present on exam now Plan Permissive hypertension Rehabilitation modalities Echocardiogram Cardiac evaluation for embolic source, including transesophageal echocardiogram and LINQ monitoring Aspirin Statin Also see stroke orders I discussed with the patient's daughter last night and again today. He has over the past several months decided he does not want to live much longer and that is why he refused to take his blood pressure medicines. He always has avoided doc tors. She's willing for him to have the stroke workup and rehabilitation treatment. I did discuss do not resuscitate He will need inpatient rehab Subjective none Objective Vital Signs Date Time Temp Pulse Resp B/P (MAP) Pulse Ox O2 Delivery O2 Flow Rate FiO2 08/15/19 07:30 99.1 85 18 192/124 (146) 94 Room Air 99.1 Intake and Output 08/15/19 07:00 Intake Total 50 ml Balance 50 ml Intake Oral 50 ml # Voids 3 PHYSICAL EXAM Alert. Smiles, follows a few commands, Repetitively repeats "I'm going to get you," but does say "hello." PERRL. EOMI. CN: no focal findings. Muscle tone: normal. Muscle strength: 2/5 right hemiplegia DTR: 2+ Plantar reflex: Flexor Gait: not examined in bed. Sensory exam: no abnormal findings. No cerebellar signs elicited. Review of Relevant I have reviewed the following items lavon (where applicable) has been applied. Labs Laboratory Tests Test 08/14/19 04:40 White Blood Count 11.5 x10^3/uL (4.0-11.0) Red Blood Count 5.57 x10^6/uL (4.30-5.70) Hemoglobin 16.4 g/dL (13.0-17.5) Hematocrit 48.8 % (39.0-53.0) Mean Corpuscular Volume 88 fL (79-100) Mean Corpuscular Hemoglobin 30 pg (25-35) Mean Corpuscular Hemoglobin Concent 34 g/dL (31-37) Red Cell Distribution Width 12.9 % (11.5-14.5) Platelet Count 245 x10^3/uL (140-400) Sodium Level 140 mmol/L (136-145) Potassium Level 3.7 mmol/L (3.5-5.1) Chloride Level 103 mmol/L (98-107) Carbon Dioxide Level 26 mmol/L (21-32) Anion Gap 11 (6-14) Blood Urea Nitrogen 17 mg/dL (8-26) Creatinine 1.4 mg/dL (0.7-1.3) Estimated GFR (Cockcroft-Gault) 50.2 BUN/Creatinine Ratio 12 (6-20) Glucose Level 156 mg/dL (70-99) Hemoglobin A1c 6.9 % (4.8-5.6) Calcium Level 9.0 mg/dL (8.5-10.1) Total Bilirubin 1.0 mg/dL (0.2-1.0) Aspartate Amino Transf (AST/SGOT) 22 U/L (15-37) Alanine Aminotransferase (ALT/SGPT) 19 U/L (16-63) Alkaline Phosphatase 90 U/L (46-116) Total Protein 8.2 g/dL (6.4-8.2) Albumin 3.8 g/dL (3.4-5.0) Albumin/Globulin Ratio 0.9 (1.0-1.7) Medications Current Medications Labetalol HCl (Trandate) 100 mg TID PO ; Start 08/12/19 at 21:00; Stop 08/13/19 at 08:18; Status DC Acetaminophen (Tylenol) 650 mg PRN Q6HRS PRN PO TEMP > 100.4F; Start 08/12/19 at 16:30 Acetaminophen (Tylenol Supp) 650 mg PRN Q4HRS PRN WI TEMP > 100.4F; Start 08/12/19 at 16:30 Aspirin (Ecotrin) 325 mg DAILYWBKFT PO Last administered on 08/14/19at 09:58; Start 08/13/19 at 08:00 Aspirin (Aspirin Rectal Supp) 300 mg PRN DAILY PRN WI IF UNABLE TO TAKE PO Last administered on 08/13/19at 11:00; Start 08/12/19 at 16:30 Labetalol HCl (Trandate) 100 mg 1X ONCE PO Last administered on 08/12/19at 16:45; Start 08/12/19 at 16:30; Stop 08/12/19 at 20:01; Status DC Barium Sulfate (Varibar Thin Liquid Apple) 148 gm 1X ONCE PO Last administered on 08/13/19at 13:45; Start 08/13/19 at 11:30; Stop 08/13/19 at 11:31; Status DC Atorvastatin Calcium (Lipitor) 10 mg QHS PO Last administered on 08/14/19at 20:38; Start 08/14/19 at 21:00 Hydralazine HCl (Apresoline Inj) 10 mg PRN Q4HRS PRN IVP ELEVATED BP, SEE COMMENTS Last administered on 08/14/19at 13:36; Start 08/14/19 at 13:30 Sodium Chloride (Normal Saline Flush) 10 ml QSHIFT PRN IV AFTER MEDS AND BLOOD DRAWS; Start 08/14/19 at 15:00 Lidocaine HCl (Xylocaine 2% Topical 5gm Tube) 1 eben 1X ONCE TP ; Start 08/14/19 at 15:00; Stop 08/14/19 at 15:06; Status DC Lidocaine HCl (Viscous Lidocaine) 15 ml 1X ONCE MM ; Start 08/14/19 at 15:00; Stop 08/14/19 at 15:06; Status DC Benzocaine (Hurricaine One) 2 spray 1X ONCE MM ; Start 08/14/19 at 15:00; Stop 08/14/19 at 15:06; Status DC Ringer's Solution 1,000 ml @ 50 mls/hr Q20H IV ; Start 08/15/19 at 07:00; Stop 08/15/19 at 18:59 Vitals/I & O Vital Sign - Last 24 Hours 08/14/19 08/14/19 08/14/19 08/14/19 11:23 13:36 15:49 19:40 Temp 97.9 98.0 99.0 97.9 98.0 99.0 Pulse 100 100 88 84 Resp 18 18 18 B/P (MAP) 210/104 (139) 210/104 188/106 (133) 212/118 (149) Pulse Ox 99 100 95 O2 Delivery Room Air Room Air Room Air 08/14/19 08/14/19 08/15/19 08/15/19 20:00 23:51 03:55 07:30 Temp 98.3 97.7 99.1 98.3 97.7 99.1 Pulse 83 81 85 Resp 18 18 18 B/P (MAP) 195/114 (141) 175/95 (121) 192/124 (146) Pulse Ox 95 93 94 O2 Delivery Room Air Room Air Room Air Room Air Intake and Output 08/14/19 08/14/19 08/15/19 15:00 23:00 07:00 Intake Total 0 ml 50 ml Balance 0 ml 50 ml Images Echo: LEFT VENTRICLE The left ventricle is normal size. There is mild concentric left ventricular h ypertrophy. The left ventricular systolic function is normal. The Ejection Fraction is 55%. There is normal LV segmental wall motion. Transmitral Doppler flow pattern is Grade I-abnormal relaxation pattern. RIGHT VENTRICLE The right ventricle is normal size. There is normal right ventricular wall thickness. The right ventricular systolic function is normal. ATRIA The left atrium is borderline dilated. The right atrium is mildly dilated. The interatrial septum is intact with no evidence for an atrial septal defect or patent foramen ovale as noted on 2-D or Doppler imaging. AORTIC VALVE The aortic valve is not well visualized. Doppler and Color Flow revealed no significant aortic regurgitation. There is no significant aortic valvular stenosis. MITRAL VALVE The mitral valve is normal in structure and function. There is no evidence of mitral valve prolapse. There is no mitral valve stenosis. Doppler and Color Flow revealed no mitral valve regurgitation noted. TRICUSPID VALVE The tricuspid valve is normal in structure and function. Doppler and Color Flow revealed trace tricuspid regurgitation with an estiamted PAP of 21 mmHg. There is no tricuspid valve stenosis. PULMONIC VALVE The pulmonic valve is not well visualized. Doppler and Color Flow revealed no pulmonic valvular regurgitation. GREAT VESSELS The aortic root is normal in size. The IVC was not visualized. PERICARDIAL EFFUSION There is no evidence of significant pericardial effusion. Critical Notification Critical Value: No <Conclusion> The left ventricular systolic function is normal. The Ejection Fraction is 55%. There is normal LV segmental wall motion. Transmitral Doppler flow pattern is Grade I-abnormal relaxation pattern. Trace tricuspid regurgitation with an estiamted PAP of 21 mmHg. There is no evidence of significant pericardial effusion. JADE SANTAMARIA MD Aug 15, 2019 10:47
[2019-08-15 10:53] VITALS: BP 190/104
[2019-08-15] MEDS ORDERED: BENZOCAINE ONE 20% MUCOSAL SPRAY. (12:43)
[2019-08-15] MEDS ORDERED: LIDOCAINE 2% TOPICAL JELLY 30GM TUBE. TP ONE (12:43)
[2019-08-15] MEDS ORDERED: LIDOCAINE 2%/EPI 1:100,000 20 ML VIAL. ONE (13:20)
[2019-08-15] MEDS ORDERED: PROPOFOL 20 ML IV ONE (13:41)
[2019-08-15] MEDS ORDERED: LIDOCAINE 2%/EPI 1:100,000 20 ML VIAL. IJ ONE (14:15)
--- NOTE | 2019-08-15 14:18 | PDOC4 ---
PROCEDURE Procedure PROCEDURE Loop recorder implantation INDICATIONS Stroke of uncertain etiology COMPLICATIONS None PROCEDURAL DETAILS An informed consent was obtained from patient. His left chest and shoulder were prepped and draped in the usual fashion. 10 mL of 2% lidocaine was infiltrated into the skin and subcutaneous tissue. An incision was made over the left third intercostal space 1 inch from midsternal line and using the introducer kit provided, a Biotronik Biomonitor loop recorder was implanted in the subcutaneous tissues. The incision was closed in one layer. Hemostasis was secured. There were no immediate complications. The device showed a sensing amplitude of 0.7 mV. CONCLUSIONS Successful implantation of Biotronik Biomonitor loop recorder for cryptogenic stroke to rule out atrial fibrillation as an etiology. RUSSELL BARTLETT MD Aug 15, 2019 14:18
--- NOTE | 2019-08-15 14:49 | CARD ---
MR#: [id number] Date of Study: 08/15/2019 Ordering Physician: PATRICIA THOMAS, Referring Physician: PATRICIA THOMAS Tech: Marielle Witt RDCS APPROVED REPORT EXAM: Transesophageal echocardiogram with color flow Doppler. INDICATION CVA/TIA PROCEDURE After obtaining informed consent, patient underwent transesophageal echo in the PACU. Type of Sedation : General Anesthesia Sedation was administered by Natalia Blank CRNA. Sedation was achieved with Propofol 170 mg intravenously. Transesophageal probe was inserted and advanced into esophagus by Basil Alexis MD. The DIXIE was performed without complications. Throughout the procedure, the blood pressure, pulse oximetry, cardiac rhythm, and rate were monitored . The patient tolerated the procedure without adverse effects. Recovery from general anesthesia was une ventful and vital signs were stable. LEFT VENTRICLE The left ventricular systolic function is normal. The Ejection Fraction is 60-65%. There is normal LV segmental wall motion. RIGHT VENTRICLE The right ventricle is normal size. There is normal right ventricular wall thickness. The right ventr icular systolic function is normal. ATRIA Injection of bubbles documented no interatrial shunt. There is no thrombus noted in the left atrial a ppendage. AORTIC VALVE The aortic valve is normal in structure and function. Doppler and Color Flow revealed no significant aortic regurgitation. There is no significant aortic valvular stenosis. MITRAL VALVE The mitral valve is normal in structure and function. There is no evidence of mitral valve prolapse. There is no mitral valve stenosis. Doppler and Color-flow revealed trace mitral regurgitation. TRICUSPID VALVE The tricuspid valve is normal in structure and function. Doppler and Color Flow revealed mild tricusp id regurgitation. PULMONIC VALVE The pulmonic valve is not well visualized. Doppler and Color Flow revealed no pulmonic valvular regur gitation. There is no pulmonic valvular stenosis. GREAT VESSELS The aortic root is normal in size. PERICARDIAL EFFUSION There is no evidence of significant pericardial effusion. Critical Notification Critical Value: No <Conclusion> The left ventricular systolic function is normal. The Ejection Fraction is 60-65%. There is normal LV segmental wall motion. Trace mitral regurgitation. Mild tricuspid regurgitation. There is no evidence of significant pericardial effusion. No intracardiac thrombus or vegetation. Injection of bubbles documented no interatrial shunt. Signed by : Basil Alexis, Electronically Approved : 08/15/2019 14:48:56
[2019-08-15 15:21] VITALS: BP 178/89
[2019-08-15] MEDS ORDERED: BISACODYL 10 MG SUPP.RECT. PR PRN (15:45)
[2019-08-15 19:40] VITALS: BP 202/102
[2019-08-15] MEDS: ATORVASTATIN CALCIUM 10 MG TABLET. PO SCH (23:05)
--- NOTE | 2019-08-15 23:08 | CONS ---
DATE OF CONSULTATION: 08/15/2019 ATTENDING PHYSICIAN: Chon Still MD The patient was seen at the request of Dr. Mayen for rehab evaluation. He is in [id number]. HISTORY OF PRESENT ILLNESS: This is a 69-year-old retired right-handed male. The patient was admitted on 08/13/2019 after being seen at Emergency Room at [facility] on 08/12/2019 with expressive aphasia and right-sided weakness and CT scan showed high attenuation in the left occipital and parietal lobes and he was transferred here for MRI scan, which revealed acute left paramedian frontoparietal lobe infarct, multiple supratentorial and infratentorial chronic infarct, moderate sequelae of chronic microvascular ischemic disease. CT scan of the brain failed to reveal any acute intracranial hemorrhage. The patient is being followed by physical therapy, occupational therapy, and speech pathology. The patient was noted with incontinence of urine. He does not have any bowel movement yet. The patient with known hypertension, hyperlipidemia, multiple previous infarcts. The patient had successful implantation of Biotronic BioMonitor loop recorder per cryptogenic stroke to rule out atrial fibrillation as an etiology done on 08/15/2019 after he had EEG done, which failed to reveal any evidence of any acute abnormality. EEG done on 08/14/2019 revealed mild diffuse disturbance of the cerebral activity consistent with any variety of toxic or metabolic encephalopathy. No focal, paroxysmal, or epileptiform activity was noted. The patient apparently had no previous history of cerebrovascular accidents. HE HAS KNOWN ALLERGIC TO PENICILLIN. The patient is status post hernia repair and tonsillectomy. He had a few steps to manage at home. He apparently has not been on any medication. He lives with his common law for about 10 years. The patient denies any pain or headache. PHYSICAL EXAMINATION: Today revealed a middle-aged male. He is alert, oriented to place and person, follows commands appropriately. The patient had some communication difficulties. The patient had no obvious facial asymmetry. No visual field cut was noted. The patient had no voluntary motion in his right upper or lower extremities noted. He had 5/5 grade muscle strength on his left upper and lower extremities. Deep tendon reflexes are 1-2+ and symmetrical. Plantar reflex is equivocal on the right side and flexor on the left side. He seemed to have equal perception of touch and pinprick sensation bilaterally. I have not tested his transfers or ambulation skills at this time. He required help with bed mobility. As per physical therapy note, he requires maximal assistance rolling to the left, maximal assistance supine to sit using bedsheets and draw. He was unable to tolerate transfers at present time. They have planned to work on weight shifting and sitting program. ASSESSMENT: Mobility and self-care limitation in a patient with new-onset cerebrovascular accident with right hemiplegia, onset 08/13/2019 or 08/12/2019, with significant mobility, self-care, communication deficits. The patient with known hypertension. RECOMMENDATIONS: Agree with the plan for physical therapy, occupational therapy, and speech pathology followup. As he had significant deficits, if he goes to inpatient rehab program, they are not going to keep him for more than 2-3 weeks. Suggest transfer to [facility] for continued care and when he is participating actively with therapy program with some return of motor function in his right upper and lower extremities, then consider transfer to acute inpatient rehab program to start him on a bowel and bladder training program. Dr. Mayen, I appreciate asking me to participate in the care of this interesting patient. I will be glad to follow him with you as needed for the rehabilitation. NEELA GANN MD DR: RILEY/elías JOB#: [id number] / [id number]
[2019-08-15 23:41] VITALS: BP 172/105
[2019-08-16 03:54] VITALS: BP 146/72
[2019-08-16 07:46] VITALS: BP 158/88
[2019-08-16] MEDS: MAGNESIUM HYDROXIDE 2,400 MG/30 ML ORAL.SUSP. PO PRN (09:29)
[2019-08-16] MEDS: ASPIRIN ENTERIC COATED 325 MG TABLET.DR. PO SCH (09:29)
--- NOTE | 2019-08-16 10:21 | PDOC ---
PROGRESS NOTES Subjective Subjective He admits headache. Objective Objective Vital Signs Date Time Temp Pulse Resp B/P (MAP) Pulse Ox O2 Delivery O2 Flow Rate FiO2 08/16/19 07:46 98.5 76 20 158/88 (111) 96 Room Air 98.5 08/15/19 14:39 2 Intake and Output 08/16/19 07:00 Intake Total 240 ml Balance 240 ml Intake Oral 240 ml Physical Exam Physical Exam He is awake,eating breakfast being fed by nursing staff and he had still no voluntary movement of right upper and lower extremitis,although some increased muscle tone in his right lower extremity. Plan Plan of Care To SNF for continued in-patient rehab efforts when medically stable and to work on bowel and bladder training. Comment Review of Relevant I have reviewed the following items lavon (where applicable) has been applied. Labs Laboratory Tests Test 08/16/19 05:00 Thyroid Stimulating Hormone (TSH) 2.530 uIU/mL (0.358-3.74) Laboratory Tests Test 08/16/19 05:00 Thyroid Stimulating Hormone (TSH) 2.530 uIU/mL (0.358-3.74) Medications Current Medications Labetalol HCl (Trandate) 100 mg TID PO ; Start 08/12/19 at 21:00; Stop 08/13/19 at 08:18; Status DC Acetaminophen (Tylenol) 650 mg PRN Q6HRS PRN PO TEMP > 100.4F; Start 08/12/19 at 16:30 Acetaminophen (Tylenol Supp) 650 mg PRN Q4HRS PRN NE TEMP > 100.4F; Start 08/12/19 at 16:30 Aspirin (Ecotrin) 325 mg DAILYWBKFT PO Last administered on 08/16/19at 09:29; Start 08/13/19 at 08:00 Aspirin (Aspirin Rectal Supp) 300 mg PRN DAILY PRN NE IF UNABLE TO TAKE PO Last administered on 08/13/19at 11:00; Start 08/12/19 at 16:30 Labetalol HCl (Trandate) 100 mg 1X ONCE PO Last administered on 08/12/19at 16:45; Start 08/12/19 at 16:30; Stop 08/12/19 at 20:01; Status DC Barium Sulfate (Varibar Thin Liquid Apple) 148 gm 1X ONCE PO Last administered on 08/13/19at 13:45; Start 08/13/19 at 11:30; Stop 08/13/19 at 11:31; Status DC Atorvastatin Calcium (Lipitor) 10 mg QHS PO Last administered on 08/15/19at 23:05; Start 08/14/19 at 21:00 Hydralazine HCl (Apresoline Inj) 10 mg PRN Q4HRS PRN IVP ELEVATED BP, SEE COMMENTS Last administered on 08/14/19at 13:36; Start 08/14/19 at 13:30 Sodium Chloride (Normal Saline Flush) 10 ml QSHIFT PRN IV AFTER MEDS AND BLOOD DRAWS; Start 08/14/19 at 15:00 Lidocaine HCl (Xylocaine 2% Topical 5gm Tube) 1 eben 1X ONCE TP ; Start 08/14/19 at 15:00; Stop 08/14/19 at 15:06; Status DC Lidocaine HCl (Viscous Lidocaine) 15 ml 1X ONCE MM ; Start 08/14/19 at 15:00; Stop 08/14/19 at 15:06; Status DC Benzocaine (Hurricaine One) 2 spray 1X ONCE MM Last administered on 08/15/19at 13:38; Start 08/14/19 at 15:00; Stop 08/14/19 at 15:06; Status DC Ringer's Solution 1,000 ml @ 50 mls/hr Q20H IV Last administered on 08/15/19at 13:32; Start 08/15/19 at 07:00; Stop 08/15/19 at 18:59; Status DC Benzocaine (Hurricaine One) 1 spray STK-MED ONCE .ROUTE ; Start 08/15/19 at 12:43; Stop 08/15/19 at 12:44; Status DC Lidocaine HCl (Xylocaine 2% Topical 30gm Tube) 30 eben STK-MED ONCE TP ; Start 08/15/19 at 12:43; Stop 08/15/19 at 12:44; Status DC Lidocaine/ Epinephrine (LIDOCAINE 2%-EPI 1:100,000 multi-dose) 20 ml STK-MED ONCE .ROUTE ; Start 08/15/19 at 13:20; Stop 08/15/19 at 13:21; Status DC Propofol 20 ml @ As Directed STK-MED ONCE IV ; Start 08/15/19 at 13:41; Stop 08/15/19 at 13:41; Status DC Lidocaine/ Epinephrine (LIDOCAINE 2%-EPI 1:100,000 multi-dose) 20 ml 1X ONCE IJ Last administered on 08/15/19at 14:17; Start 08/15/19 at 14:15; Stop 08/15/19 at 14:16; Status DC Bisacodyl (Dulcolax Supp) 10 mg PRN DAILY PRN NE CONSTIPATION; Start 08/15/19 at 15:45 Magnesium Hydroxide (Milk Of Magnesia) 2,400 mg PRN DAILY PRN PO CONSTIPATION Last administered on 08/16/19at 09:29; Start 08/15/19 at 15:45 Vitals/I & O Vital Sign - Last 24 Hours 08/15/19 08/15/19 08/15/19 08/15/19 10:53 13:17 14:09 14:19 Temp 98.4 98.7 98.0 98.4 98.7 98.0 Pulse 86 82 85 Resp 18 16 16 B/P (MAP) 190/104 (132) 200/108 155/77 Pulse Ox 92 93 95 O2 Delivery Room Air Room Air Nasal Cannula Nasal Cannula O2 Flow Rate 4 3 08/15/19 08/15/19 08/15/19 08/15/19 14:24 14:39 15:21 19:40 Temp 98.5 97.9 98.5 97.9 Pulse 78 87 82 94 Resp 16 16 18 18 B/P (MAP) 148/78 146/86 178/89 (118) 202/102 (135) Pulse Ox 94 94 92 94 O2 Delivery Nasal Cannula Nasal Cannula Room Air Room Air O2 Flow Rate 3 2 08/15/19 08/15/19 08/16/19 08/16/19 20:30 23:41 03:54 07:46 Temp 98.4 98.2 98.5 98.4 98.2 98.5 Pulse 92 81 76 Resp 18 18 20 B/P (MAP) 172/105 (127) 146/72 (96) 158/88 (111) Pulse Ox 94 95 96 O2 Delivery Room Air Room Air Room Air Room Air Intake and Output 08/15/19 08/15/19 08/16/19 15:00 23:00 07:00 Intake Total 0 ml 240 ml Balance 0 ml 240 ml NEELA GANN MD Aug 16, 2019 10:21
[2019-08-16 11:31] VITALS: BP 149/86
--- NOTE | 2019-08-16 11:36 | PDOC ---
PROGRESS NOTES Subjective Subjective feels ok Objective Objective Vital Signs Date Time Temp Pulse Resp B/P (MAP) Pulse Ox O2 Delivery O2 Flow Rate FiO2 08/16/19 07:46 98.5 76 20 158/88 (111) 96 Room Air 98.5 08/15/19 14:39 2 Intake and Output 08/16/19 07:00 Intake Total 240 ml Balance 240 ml Intake Oral 240 ml Physical Exam Abdomen: Soft, No tenderness Heart: Regular rate, Normal S1, Normal S2 Extremities: No edema, Normal pulses General: Alert, Cooperative, No acute distress HEENT: Atraumatic, Mucous membr. moist/pink Lungs: Clear to auscultation MUSCULOSKELETAL: Osteoarthritic changes both hands Neck: Supple Neuro: Normal tone, Other Psych/Mental Status: Mood NL Skin: No significant lesion Assessment Assessment ASSESSMENT: Flaccid paralysis of his right upper and right lower extremity, has expressive aphasia secondary to acute left paramedian frontoparietal infarct involving the distal anterior cerebral artery and distal posterior cerebral artery territory with no acute intracranial hemorrhage. OTHER MEDICAL PROBLEMS: Acute CVA- rt hemiperesis A. Hypertension. B. Hyperlipidemia. C. Multiple previous infarcts. PLAN:SNU sunday loop recorder placed DIXIE - no thrombus, no shunt rehab consult. spoke with pts significant other. covering for dr acosta. DNR requested by family Comment Review of Relevant I have reviewed the following items lavon (where applicable) has been applied. Labs Laboratory Tests Test 08/16/19 05:00 Thyroid Stimulating Hormone (TSH) 2.530 uIU/mL (0.358-3.74) Medications Current Medications Benzocaine (Hurricaine One) 1 spray STK-MED ONCE .ROUTE ; Start 08/15/19 at 12:43; Stop 08/15/19 at 12:44; Status DC Bisacodyl (Dulcolax Supp) 10 mg PRN DAILY PRN LA CONSTIPATION; Start 08/15/19 at 15:45 Lidocaine HCl (Xylocaine 2% Topical 30gm Tube) 30 eben STK-MED ONCE TP ; Start 08/15/19 at 12:43; Stop 08/15/19 at 12:44; Status DC Lidocaine/ Epinephrine (LIDOCAINE 2%-EPI 1:100,000 multi-dose) 20 ml 1X ONCE IJ Last administered on 08/15/19at 14:17; Start 08/15/19 at 14:15; Stop 08/15/19 at 14:16; Status DC Lidocaine/ Epinephrine (LIDOCAINE 2%-EPI 1:100,000 multi-dose) 20 ml STK-MED ON CE .ROUTE ; Start 08/15/19 at 13:20; Stop 08/15/19 at 13:21; Status DC Magnesium Hydroxide (Milk Of Magnesia) 2,400 mg PRN DAILY PRN PO CONSTIPATION Last administered on 08/16/19at 09:29; Start 08/15/19 at 15:45 Propofol 20 ml @ As Directed STK-MED ONCE IV ; Start 08/15/19 at 13:41; Stop 08/15/19 at 13:41; Status DC Vitals/I & O Vital Sign - Last 24 Hours 08/15/19 08/15/19 08/15/19 08/15/19 13:17 14:09 14:19 14:24 Temp 98.7 98.0 98.7 98.0 Pulse 82 85 78 Resp 16 16 16 B/P (MAP) 200/108 155/77 148/78 Pulse Ox 93 95 94 O2 Delivery Room Air Nasal Cannula Nasal Cannula Nasal Cannula O2 Flow Rate 4 3 3 08/15/19 08/15/19 08/15/19 08/15/19 14:39 15:21 19:40 20:30 Temp 98.5 97.9 98.5 97.9 Pulse 87 82 94 Resp 16 18 18 B/P (MAP) 146/86 178/89 (118) 202/102 (135) Pulse Ox 94 92 94 O2 Delivery Nasal Cannula Room Air Room Air Room Air O2 Flow Rate 2 08/15/19 08/16/19 08/16/19 23:41 03:54 07:46 Temp 98.4 98.2 98.5 98.4 98.2 98.5 Pulse 92 81 76 Resp 18 18 20 B/P (MAP) 172/105 (127) 146/72 (96) 158/88 (111) Pulse Ox 94 95 96 O2 Delivery Room Air Room Air Room Air Intake and Output 08/15/19 08/15/19 08/16/19 15:00 23:00 07:00 Intake Total 0 ml 240 ml Balance 0 ml 240 ml RENU HYDE MD Aug 16, 2019 11:36
--- NOTE | 2019-08-16 12:22 | PDOC ---
PROGRESS NOTES Assessment Acute left paramedian frontoparietal lobe infarcts. CT angiogram, TTE, DIXIE all fail to show a source, Multiple supratentorial and infratentorial chronic infarcts, chronic microvascular ischemia. Tremulous episodes, probably clonus, EEG is negative for seizures Daughter has noticed tremor in the past, describes essential tremor, not present on exam now Plan Permissive hypertension Rehabilitation modalities LINQ monitoring Aspirin Statin Also see stroke orders Discussed with the patient's daughter and significant other Needs inpatient rehab Subjective denies pain Objective Vital Signs Date Time Temp Pulse Resp B/P (MAP) Pulse Ox O2 Delivery O2 Flow Rate FiO2 08/16/19 11:31 98.4 78 18 149/86 (107) 96 Room Air 98.4 08/15/19 14:39 2 Intake and Output 08/16/19 07:00 Intake Total 240 ml Balance 240 ml Intake Oral 240 ml PHYSICAL EXAM Alert. Smiles, follows a few commands, Repetitively repeats "I'm going to get you," but does say "hello." Names "watch." PERRL. EOMI. CN: no focal findings. Muscle tone: normal. Muscle strength: 2/5 right hemiplegia DTR: 2+ Plantar reflex: Flexor Gait: not examined in bed. Sensory exam: no abnormal findings. No cerebellar signs elicited. Review of Relevant I have reviewed the following items lavon (where applicable) has been applied. Labs Laboratory Tests Test 08/16/19 05:00 Thyroid Stimulating Hormone (TSH) 2.530 uIU/mL (0.358-3.74) Laboratory Tests Test 08/16/19 05:00 Thyroid Stimulating Hormone (TSH) 2.530 uIU/mL (0.358-3.74) Medications Current Medications Labetalol HCl (Trandate) 100 mg TID PO ; Start 08/12/19 at 21:00; Stop 08/13/19 at 08:18; Status DC Acetaminophen (Tylenol) 650 mg PRN Q6HRS PRN PO TEMP > 100.4F; Start 08/12/19 at 16:30 Acetaminophen (Tylenol Supp) 650 mg PRN Q4HRS PRN NV TEMP > 100.4F; Start 08/12/19 at 16:30 Aspirin (Ecotrin) 325 mg DAILYWBKFT PO Last administered on 08/16/19at 09:29; Start 08/13/19 at 08:00 Aspirin (Aspirin Rectal Supp) 300 mg PRN DAILY PRN NV IF UNABLE TO TAKE PO Last administered on 08/13/19at 11:00; Start 08/12/19 at 16:30 Labetalol HCl (Trandate) 100 mg 1X ONCE PO Last administered on 08/12/19at 16:45; Start 08/12/19 at 16:30; Stop 08/12/19 at 20:01; Status DC Barium Sulfate (Varibar Thin Liquid Apple) 148 gm 1X ONCE PO Last administered on 08/13/19at 13:45; Start 08/13/19 at 11:30; Stop 08/13/19 at 11:31; Status DC Atorvastatin Calcium (Lipitor) 10 mg QHS PO Last administered on 08/15/19at 23:05; Start 08/14/19 at 21:00 Hydralazine HCl (Apresoline Inj) 10 mg PRN Q4HRS PRN IVP ELEVATED BP, SEE COMMENTS Last administered on 08/14/19at 13:36; Start 08/14/19 at 13:30 Sodium Chloride (Normal Saline Flush) 10 ml QSHIFT PRN IV AFTER MEDS AND BLOOD DRAWS; Start 08/14/19 at 15:00 Lidocaine HCl (Xylocaine 2% Topical 5gm Tube) 1 eben 1X ONCE TP ; Start 08/14/19 at 15:00; Stop 08/14/19 at 15:06; Status DC Lidocaine HCl (Viscous Lidocaine) 15 ml 1X ONCE MM ; Start 08/14/19 at 15:00; Stop 08/14/19 at 15:06; Status DC Benzocaine (Hurricaine One) 2 spray 1X ONCE MM Last administered on 08/15/19at 13:38; Start 08/14/19 at 15:00; Stop 08/14/19 at 15:06; Status DC Ringer's Solution 1,000 ml @ 50 mls/hr Q20H IV Last administered on 08/15/19at 13:32; Start 08/15/19 at 07:00; Stop 08/15/19 at 18:59; Status DC Benzocaine (Hurricaine One) 1 spray STK-MED ONCE .ROUTE ; Start 08/15/19 at 12:43; Stop 08/15/19 at 12:44; Status DC Lidocaine HCl (Xylocaine 2% Topical 30gm Tube) 30 eben STK-MED ONCE TP ; Start 08/15/19 at 12:43; Stop 08/15/19 at 12:44; Status DC Lidocaine/ Epinephrine (LIDOCAINE 2%-EPI 1:100,000 multi-dose) 20 ml STK-MED ONCE .ROUTE ; Start 08/15/19 at 13:20; Stop 08/15/19 at 13:21; Status DC Propofol 20 ml @ As Directed STK-MED ONCE IV ; Start 08/15/19 at 13:41; Stop 08/15/19 at 13:41; Status DC Lidocaine/ Epinephrine (LIDOCAINE 2%-EPI 1:100,000 multi-dose) 20 ml 1X ONCE IJ Last administered on 08/15/19at 14:17; Start 08/15/19 at 14:15; Stop 08/15/19 at 14:16; Status DC Bisacodyl (Dulcolax Supp) 10 mg PRN DAILY PRN NV CONSTIPATION; Start 08/15/19 at 15:45 Magnesium Hydroxide (Milk Of Magnesia) 2,400 mg PRN DAILY PRN PO CONSTIPATION Last administered on 08/16/19at 09:29; Start 08/15/19 at 15:45 Vitals/I & O Vital Sign - Last 24 Hours 08/15/19 08/15/19 08/15/19 08/15/19 13:17 14:09 14:19 14:24 Temp 98.7 98.0 98.7 98.0 Pulse 82 85 78 Resp 16 16 16 B/P (MAP) 200/108 155/77 148/78 Pulse Ox 93 95 94 O2 Delivery Room Air Nasal Cannula Nasal Cannula Nasal Cannula O2 Flow Rate 4 3 3 08/15/19 08/15/19 08/15/19 08/15/19 14:39 15:21 19:40 20:30 Temp 98.5 97.9 98.5 97.9 Pulse 87 82 94 Resp 16 18 18 B/P (MAP) 146/86 178/89 (118) 202/102 (135) Pulse Ox 94 92 94 O2 Delivery Nasal Cannula Room Air Room Air Room Air O2 Flow Rate 2 08/15/19 08/16/19 08/16/19 08/16/19 23:41 03:54 07:46 11:31 Temp 98.4 98.2 98.5 98.4 98.4 98.2 98.5 98.4 Pulse 92 81 76 78 Resp 18 18 20 18 B/P (MAP) 172/105 (127) 146/72 (96) 158/88 (111) 149/86 (107) Pulse Ox 94 95 96 96 O2 Delivery Room Air Room Air Room Air Room Air Intake and Output 08/15/19 08/15/19 08/16/19 15:00 23:00 07:00 Intake Total 0 ml 240 ml Balance 0 ml 240 ml Images Transesophageal echocardiogram with color flow Doppler. INDICATION CVA/TIA PROCEDURE After obtaining informed consent, patient underwent transesophageal echo in the PACU. Type of Sedation : General Anesthesia Sedation was administered by Natalia Blank CRNA. Sedation was achieved with Propofol 170 mg intravenously. Transesophageal probe was inserted and advanced into esophagus by Basil Alexis MD. The DIXIE was performed without complications. Throughout the procedure, the blood pressure, pulse oximetry, cardiac rhythm, and rate were monitored. The patient tolerated the procedure without adverse effects. Recovery from general anesthesia was uneventful and vital signs were stable. LEFT VENTRICLE The left ventricular systolic function is normal. The Ejection Fraction is 60- 65%. There is normal LV segmental wall motion. RIGHT VENTRICLE The right ventricle is normal size. There is normal right ventricular wall thickness. The right ventricular systolic function is normal. ATRIA Injection of bubbles documented no interatrial shunt. There is no thrombus noted in the left atrial appendage. AORTIC VALVE The aortic valve is normal in structure and function. Doppler and Color Flow revealed no significant aortic regurgitation. There is no significant aortic valvular stenosis. MITRAL VALVE The mitral valve is normal in structure and function. There is no evidence of mitral valve prolapse. There is no mitral valve stenosis. Doppler and Color-flow revealed trace mitral regurgitation. TRICUSPID VALVE The tricuspid valve is normal in structure and function. Doppler and Color Flow revealed mild tricuspid regurgitation. PULMONIC VALVE The pulmonic valve is not well visualized. Doppler and Color Flow revealed no pulmonic valvular regurgitation. There is no pulmonic valvular stenosis. GREAT VESSELS The aortic root is normal in size. PERICARDIAL EFFUSION There is no evidence of significant pericardial effusion. Critical Notification Critical Value: No <Conclusion> The left ventricular systolic function is normal. The Ejection Fraction is 60-65%. There is normal LV segmental wall motion. Trace mitral regurgitation. Mild tricuspid regurgitation. There is no evidence of significant pericardial effusion. No intracardiac thrombus or vegetation. Injection of bubbles documented no interatrial shunt. JADE SANTAMARIA MD Aug 16, 2019 12:22
[2019-08-16 15:16] VITALS: BP 189/106
[2019-08-16 19:53] VITALS: BP_SYST 195; BP_SYST 202; BP_DIAS 111; BP_DIAS 86
[2019-08-16] MEDS: hydrALAZINE 20 MG/ML VIAL. IVP PRN (20:46)
[2019-08-16] MEDS: ATORVASTATIN CALCIUM 10 MG TABLET. PO SCH (20:46)
[2019-08-16 23:52] VITALS: BP 195/86
[2019-08-17 03:34] VITALS: BP 178/89
[2019-08-17 07:00] VITALS: BP 177/106
[2019-08-17] MEDS: ASPIRIN CHEWABLE 81 MG TABLET. PO SCH (11:07)
[2019-08-17] MEDS: DOCUSATE 100 MG/10 ML SOLUTION. PO PRN (11:07)
[2019-08-17] MEDS: MAGNESIUM HYDROXIDE 2,400 MG/30 ML ORAL.SUSP. PO PRN (11:07)
--- NOTE | 2019-08-17 11:10 | PDOC ---
PROGRESS NOTES Subjective Subjective talking more now Objective Objective Vital Signs Date Time Temp Pulse Resp B/P (MAP) Pulse Ox O2 Delivery O2 Flow Rate FiO2 08/17/19 07:00 98.5 80 18 177/106 (129) 98 Room Air 98.5 08/16/19 08:00 2.0 Intake and Output 08/17/19 07:00 Intake Total 800 ml Balance 800 ml Intake Oral 800 ml # Voids 3 Physical Exam Abdomen: Soft, No tenderness Heart: Regular rate, Normal S1, Normal S2 Extremities: No edema, Normal pulses General: Alert, Cooperative, No acute distress HEENT: Atraumatic, Mucous membr. moist/pink Lungs: Clear to auscultation MUSCULOSKELETAL: Osteoarthritic changes both hands Neck: Supple Neuro: Normal speech, Normal tone, Other Psych/Mental Status: Mood NL Skin: No breakdown, No significant lesion Assessment Assessment ASSESSMENT: Flaccid paralysis of his right upper and right lower extremity, has expressive aphasia secondary to acute left paramedian frontoparietal infarct involving the distal anterior cerebral artery and distal posterior cerebral artery territory with no acute intracranial hemorrhage. OTHER MEDICAL PROBLEMS: *Acute CVA- rt hemiperesis A. Hypertension. B. Hyperlipidemia. C. Multiple previous infarcts. PLAN:SNU sunday loop recorder placed DIXIE - no thrombus, no shunt rehab consult appreciated spoke with pts daughter. covering for dr acosta. DNR requested by family Comment Review of Relevant I have reviewed the following items lavon (where applicable) has been applied. Medications Current Medications Aspirin (Children'S Aspirin) 324 mg DAILYWBKFT PO Last administered on 08/17/19at 11:07; Start 08/17/19 at 10:30 Docusate Sodium (Colace Solution) 100 mg PRN DAILY PRN PO CONSTIPATION Last administered on 08/17/19at 11:07; Start 08/17/19 at 10:30 Vitals/I & O Vital Sign - Last 24 Hours 08/16/19 08/16/19 08/16/19 08/16/19 11:31 15:16 19:53 20:20 Temp 98.4 97.7 97.9 98.4 97.7 97.9 Pulse 78 76 68 Resp 18 18 18 B/P (MAP) 149/86 (107) 189/106 (133) 202/111 (141) Pulse Ox 96 97 95 O2 Delivery Room Air Room Air Room Air Room Air 12/14/19 12/14/19 12/15/19 12/15/19 20:46 23:52 03:34 07:00 Temp 98.4 98.3 98.5 98.4 98.3 98.5 Pulse 68 80 76 80 Resp 18 18 18 B/P (MAP) 202/111 195/86 (122) 178/89 (118) 177/106 (129) Pulse Ox 97 96 98 O2 Delivery Room Air Room Air Room Air Intake and Output 08/16/19 08/16/19 08/17/19 15:00 23:00 07:00 Intake Total 600 ml 200 ml Balance 600 ml 200 ml RENU HYDE MD Aug 17, 2019 11:10
[2019-08-17 11:34] VITALS: BP 189/100
--- NOTE | 2019-08-17 13:08 | PDOC ---
PROGRESS NOTES Assessment Acute left paramedian frontoparietal lobe infarcts. CT angiogram, TTE, DIXIE all fail to show a source, Multiple supratentorial and infratentorial chronic infarcts, chronic microvascular ischemia. Tremulous episodes, probably clonus, EEG is negative for seizures, no recurrence Daughter has noticed tremor in the past, describes essential tremor, not present on exam now Plan Permissive hypertension Rehabilitation modalities LINQ monitoring Aspirin Statin Also see stroke orders Needs inpatient rehab Subjective Complains of pain all over his body Objective Vital Signs Date Time Temp Pulse Resp B/P (MAP) Pulse Ox O2 Delivery O2 Flow Rate FiO2 08/17/19 11:34 97.9 83 21 189/100 (129) 96 Room Air 97.9 08/17/19 08:00 2.0 Intake and Output 08/17/19 07:00 Intake Total 800 ml Balance 800 ml Intake Oral 800 ml # Voids 3 PHYSICAL EXAM Alert. Smiles, follows a few commands, says"hello." Names "watch." PERRL. EOMI. CN: no focal findings. Muscle tone: normal. Muscle strength: 2/5 right hemiplegia DTR: 2+ Plantar reflex: Flexor Gait: not examined in bed. Sensory exam: no abnormal findings. No cerebellar signs elicited. Review of Relevant I have reviewed the following items lavon (where applicable) has been applied. Labs Laboratory Tests Test 08/16/19 05:00 Thyroid Stimulating Hormone (TSH) 2.530 uIU/mL (0.358-3.74) Medications Current Medications Labetalol HCl (Trandate) 100 mg TID PO ; Start 08/12/19 at 21:00; Stop 08/13/19 at 08:18; Status DC Acetaminophen (Tylenol) 650 mg PRN Q6HRS PRN PO TEMP > 100.4F; Start 08/12/19 at 16:30 Acetaminophen (Tylenol Supp) 650 mg PRN Q4HRS PRN [place] TEMP > 100.4F; Start 08/12/19 at 16:30 Aspirin (Ecotrin) 325 mg DAILYWBKFT PO Last administered on 08/16/19at 09:29; Start 08/13/19 at 08:00; Stop 08/17/19 at 10:27; Status DC Aspirin (Aspirin Rectal Supp) 300 mg PRN DAILY PRN [place] IF UNABLE TO TAKE PO Last administered on 08/13/19at 11:00; Start 08/12/19 at 16:30 Labetalol HCl (Trandate) 100 mg 1X ONCE PO Last administered on 08/12/19at 16:45; Start 08/12/19 at 16:30; Stop 08/12/19 at 20:01; Status DC Barium Sulfate (Varibar Thin Liquid Apple) 148 gm 1X ONCE PO Last administered on 08/13/19at 13:45; Start 08/13/19 at 11:30; Stop 08/13/19 at 11:31; Status DC Atorvastatin Calcium (Lipitor) 10 mg QHS PO Last administered on 08/16/19at 20:46; Start 08/14/19 at 21:00 Hydralazine HCl (Apresoline Inj) 10 mg PRN Q4HRS PRN IVP ELEVATED BP, SEE COMMENTS Last administered on 08/16/19at 20:46; Start 08/14/19 at 13:30 Sodium Chloride (Normal Saline Flush) 10 ml QSHIFT PRN IV AFTER MEDS AND BLOOD DRAWS; Start 08/14/19 at 15:00 Lidocaine HCl (Xylocaine 2% Topical 5gm Tube) 1 eben 1X ONCE TP ; Start 08/14/19 at 15:00; Stop 08/14/19 at 15:06; Status DC Lidocaine HCl (Viscous Lidocaine) 15 ml 1X ONCE MM ; Start 08/14/19 at 15:00; Stop 08/14/19 at 15:06; Status DC Benzocaine (Hurricaine One) 2 spray 1X ONCE MM Last administered on 08/15/19at 13:38; Start 08/14/19 at 15:00; Stop 08/14/19 at 15:06; Status DC Ringer's Solution 1,000 ml @ 50 mls/hr Q20H IV Last administered on 08/15/19at 13:32; Start 08/15/19 at 07:00; Stop 08/15/19 at 18:59; Status DC Benzocaine (Hurricaine One) 1 spray STK-MED ONCE .ROUTE ; Start 08/15/19 at 12:43; Stop 08/15/19 at 12:44; Status DC Lidocaine HCl (Xylocaine 2% Topical 30gm Tube) 30 eben STK-MED ONCE TP ; Start 08/15/19 at 12:43; Stop 08/15/19 at 12:44; Status DC Lidocaine/ Epinephrine (LIDOCAINE 2%-EPI 1:100,000 multi-dose) 20 ml STK-MED ONCE .ROUTE ; Start 08/15/19 at 13:20; Stop 08/15/19 at 13:21; Status DC Propofol 20 ml @ As Directed STK-MED ONCE IV ; Start 08/15/19 at 13:41; Stop 08/15/19 at 13:41; Status DC Lidocaine/ Epinephrine (LIDOCAINE 2%-EPI 1:100,000 multi-dose) 20 ml 1X ONCE IJ Last administered on 08/15/19at 14:17; Start 08/15/19 at 14:15; Stop 08/15/19 at 14:16; Status DC Bisacodyl (Dulcolax Supp) 10 mg PRN DAILY PRN [place] CONSTIPATION; Start 08/15/19 at 15:45 Magnesium Hydroxide (Milk Of Magnesia) 2,400 mg PRN DAILY PRN PO CONSTIPATION Last administered on 08/17/19at 11:07; Start 08/15/19 at 15:45 Aspirin (Children'S Aspirin) 324 mg DAILYWBKFT PO Last administered on at 11:07; Start 08/17/19 at 10:30 Docusate Sodium (Colace Solution) 100 mg PRN DAILY PRN PO CONSTIPATION Last administered on 08/17/19at 11:07; Start 08/17/19 at 10:30 Vitals/I & O Vital Sign - Last 24 Hours 08/16/19 08/16/19 08/16/19 08/16/19 15:16 19:53 20:20 20:46 Temp 97.7 97.9 97.7 97.9 Pulse 76 68 68 Resp 18 18 B/P (MAP) 189/106 (133) 202/111 (141) 202/111 Pulse Ox 97 95 O2 Delivery Room Air Room Air Room Air 08/16/19 08/17/19 08/17/19 08/17/19 23:52 03:34 07:00 08:00 Temp 98.4 98.3 98.5 98.4 98.3 98.5 Pulse 80 76 80 Resp 18 18 18 B/P (MAP) 195/86 (122) 178/89 (118) 177/106 (129) Pulse Ox 97 96 98 O2 Delivery Room Air Room Air Room Air Room Air O2 Flow Rate 2.0 08/17/19 11:34 Temp 97.9 97.9 Pulse 83 Resp 21 B/P (MAP) 189/100 (129) Pulse Ox 96 O2 Delivery Room Air Intake and Output 08/16/19 08/16/19 08/17/19 15:00 23:00 07:00 Intake Total 600 ml 200 ml Balance 600 ml 200 ml JADE SANTAMARIA MD Aug 17, 2019 13:08
[2019-08-17 15:59] VITALS: BP 167/97
[2019-08-17 19:46] VITALS: BP 211/116
[2019-08-17] MEDS: ATORVASTATIN CALCIUM 10 MG TABLET. PO SCH (21:00)
[2019-08-17 23:44] VITALS: BP 187/64
[2019-08-18 01:57] VITALS: BP 187/64
[2019-08-18 02:55] VITALS: BP 152/85
[2019-08-18 07:00] VITALS: BP 151/93
--- NOTE | 2019-08-18 08:36 | PDOC ---
PROGRESS NOTES Subjective Subjective no new problems , todays catch phrase 'get out' Objective Objective Vital Signs Date Time Temp Pulse Resp B/P (MAP) Pulse Ox O2 Delivery O2 Flow Rate FiO2 08/18/19 07:00 98.5 80 18 151/93 (112) 94 Room Air 98.5 08/17/19 08:00 2.0 Intake and Output 08/18/19 07:00 Intake Total 730 ml Balance 730 ml Intake Oral 730 ml # Voids 3 # Bowel Movements 2 Physical Exam Abdomen: Soft, No tenderness Heart: Regular rate, Normal S1, Normal S2 Extremities: No edema, Normal pulses General: Alert, Cooperative, No acute distress HEENT: Atraumatic, Mucous membr. moist/pink Lungs: Clear to auscultation MUSCULOSKELETAL: Osteoarthritic changes both hands Neck: Supple Neuro: Normal speech, Normal tone, Other Psych/Mental Status: Mood NL Skin: No breakdown, No significant lesion Assessment Assessment ASSESSMENT: Flaccid paralysis of his right upper and right lower extremity, has expressive aphasia secondary to acute left paramedian frontoparietal infarct involving the distal anterior cerebral artery and distal posterior cerebral artery territory with no acute intracranial hemorrhage. OTHER MEDICAL PROBLEMS: *Acute CVA- rt hemiperesis A. Hypertension. B. Hyperlipidemia. C. Multiple previous infarcts. PLAN:SNU today loop recorder placed DIXIE - no thrombus, no shunt rehab consult appreciated spoke with pts daughter. covering for dr acosta. DNR requested by family Comment Review of Relevant I have reviewed the following items lavon (where applicable) has been applied. Medications Current Medications Aspirin (Children'S Aspirin) 324 mg DAILYWBKFT PO Last administered on 08/17/19at 11:07; Start 08/17/19 at 10:30 Docusate Sodium (Colace Solution) 100 mg PRN DAILY PRN PO CONSTIPATION Last administered on 08/17/19at 11:07; Start 08/17/19 at 10:30 Vitals/I & O Vital Sign - Last 24 Hours 08/17/19 08/17/19 08/17/19 08/17/19 11:34 15:59 19:46 20:00 Temp 97.9 97.7 97.5 97.9 97.7 97.5 Pulse 83 75 82 Resp 21 18 18 B/P (MAP) 189/100 (129) 167/97 (120) 211/116 (147) Pulse Ox 96 98 96 O2 Delivery Room Air Room Air Room Air Room Air 08/17/19 08/18/19 08/18/19 23:44 02:55 07:00 Temp 97.7 98.2 98.5 97.7 98.2 98.5 Pulse 76 88 80 Resp 18 18 18 B/P (MAP) 187/64 (105) 152/85 (107) 151/93 (112) Pulse Ox 97 96 94 O2 Delivery Room Air Room Air Room Air Intake and Output 08/17/19 08/17/19 08/18/19 15:00 23:00 07:00 Intake Total 370 ml 360 ml 0 ml Balance 370 ml 360 ml 0 ml RENU HYDE MD Aug 18, 2019 08:36
[2019-08-18] MEDS ORDERED: ASPI-630 PO (08:39)
[2019-08-18] MEDS ORDERED: DOCU50LI12 PO (08:39)
[2019-08-18] MEDS ORDERED: ATOR10TA60 PO (08:39)
--- NOTE | 2019-08-18 08:40 | SNU/HH DC ---
DISCHARGE ORDERS DISCHARGE INFORMATION: DISCHARGE DATE: Aug 18, 2019 CONDITION ON DISCHARGE: Stable CODE STATUS: Code Status: DNR/DNI NURSING HOME: SNF STAY <30 DAYS: Yes HOSPICE: HOSPICE: No HOSPICE EVAL & TREAT: No LTAC: ADMIT TO LTAC: No POST DISCHARGE ORDERS: ACTIVITY ORDERS: Activity as tolerated DIET AFTER DISCHARGE: Low Sodium 2 gm CHECKS AFTER DISCHARGE: CHECKS AFTER DISCHARGE: Check blood press - daily TREATMENT/EQUIPMENT ORDERS: ADAPTIVE EQUIPMENT NEEDED: Wheelchair Physical Therapy For: Evalulation/Treatment Occupational Therapy For: Evaluation/Treatment Speech Language Pathology For: Evaluation/Treatment RENU HYDE MD Aug 18, 2019 08:40
[2019-08-18] MEDS ORDERED: AMLO5TAB10 PO (08:41)
--- NOTE | 2019-08-18 09:49 | PDOC ---
PROGRESS NOTES Subjective Subjective No new complaints. Objective Objective Vital Signs Date Time Temp Pulse Resp B/P (MAP) Pulse Ox O2 Delivery O2 Flow Rate FiO2 08/18/19 07:00 98.5 80 18 151/93 (112) 94 Room Air 98.5 08/17/19 08:00 2.0 Intake and Output 08/18/19 07:00 Intake Total 730 ml Balance 730 ml Intake Oral 730 ml # Voids 3 # Bowel Movements 2 Physical Exam Physical Exam He continues with increased muscle tome in his right lower extremity and getting some tone in his right upper extremity and still no voluntary movement of right upper and lower extremities. Plan Plan of Care I spke to his family. Suggest transfer to SNF rather than acute rehab at this time as he does not have any motor functional return in his right upper and lower extremities and when he get some motor functional return,then to acute rehab unit. Comment Review of Relevant I have reviewed the following items lavon (where applicable) has been applied. Medications Current Medications Labetalol HCl (Trandate) 100 mg TID PO ; Start 08/12/19 at 21:00; Stop 08/13/19 at 08:18; Status DC Acetaminophen (Tylenol) 650 mg PRN Q6HRS PRN PO TEMP > 100.4F; Start 08/12/19 at 16:30 Acetaminophen (Tylenol Supp) 650 mg PRN Q4HRS PRN [place] TEMP > 100.4F; Start 08/12/19 at 16:30 Aspirin (Ecotrin) 325 mg DAILYWBKFT PO Last administered on 08/16/19at 09:29; Start 08/13/19 at 08:00; Stop 08/17/19 at 10:27; Status DC Aspirin (Aspirin Rectal Supp) 300 mg PRN DAILY PRN [place] IF UNABLE TO TAKE PO Last administered on 08/13/19at 11:00; Start 08/12/19 at 16:30 Labetalol HCl (Trandate) 100 mg 1X ONCE PO Last administered on 08/12/19at 16:45; Start 08/12/19 at 16:30; Stop 08/12/19 at 20:01; Status DC Barium Sulfate (Varibar Thin Liquid Apple) 148 gm 1X ONCE PO Last administered on 08/13/19at 13:45; Start 08/13/19 at 11:30; Stop 08/13/19 at 11:31; Status DC Atorvastatin Calcium (Lipitor) 10 mg QHS PO Last administered on 08/17/19at 21:00; Start 08/14/19 at 21:00 Hydralazine HCl (Apresoline Inj) 10 mg PRN Q4HRS PRN IVP ELEVATED BP, SEE COMMENTS Last administered on 08/16/19at 20:46; Start 08/14/19 at 13:30 Sodium Chloride (Normal Saline Flush) 10 ml QSHIFT PRN IV AFTER MEDS AND BLOOD DRAWS; Start 08/14/19 at 15:00 Lidocaine HCl (Xylocaine 2% Topical 5gm Tube) 1 eben 1X ONCE TP ; Start 08/14/19 at 15:00; Stop 08/14/19 at 15:06; Status DC Lidocaine HCl (Viscous Lidocaine) 15 ml 1X ONCE MM ; Start 08/14/19 at 15:00; Stop 08/14/19 at 15:06; Status DC Benzocaine (Hurricaine One) 2 spray 1X ONCE MM Last administered on 08/15/19at 13:38; Start 08/14/19 at 15:00; Stop 08/14/19 at 15:06; Status DC Ringer's Solution 1,000 ml @ 50 mls/hr Q20H IV Last administered on 08/15/19at 13:32; Start 08/15/19 at 07:00; Stop 08/15/19 at 18:59; Status DC Benzocaine (Hurricaine One) 1 spray STK-MED ONCE .ROUTE ; Start 08/15/19 at 12:43; Stop 08/15/19 at 12:44; Status DC Lidocaine HCl (Xylocaine 2% Topical 30gm Tube) 30 eben STK-MED ONCE TP ; Start 08/15/19 at 12:43; Stop 08/15/19 at 12:44; Status DC Lidocaine/ Epinephrine (LIDOCAINE 2%-EPI 1:100,000 multi-dose) 20 ml STK-MED ONCE .ROUTE ; Start 08/15/19 at 13:20; Stop 08/15/19 at 13:21; Status DC Propofol 20 ml @ As Directed STK-MED ONCE IV ; Start 08/15/19 at 13:41; Stop 08/15/19 at 13:41; Status DC Lidocaine/ Epinephrine (LIDOCAINE 2%-EPI 1:100,000 multi-dose) 20 ml 1X ONCE IJ Last administered on 08/15/19at 14:17; Start 08/15/19 at 14:15; Stop 08/15/19 at 14:16; Status DC Bisacodyl (Dulcolax Supp) 10 mg PRN DAILY PRN [place] CONSTIPATION; Start 08/15/19 at 15:45 Magnesium Hydroxide (Milk Of Magnesia) 2,400 mg PRN DAILY PRN PO CONSTIPATION Last administered on 08/17/19at 11:07; Start 08/15/19 at 15:45 Aspirin (Children'S Aspirin) 324 mg DAILYWBKFT PO Last administered on 08/17/19at 11:07; Start 08/17/19 at 10:30 Docusate Sodium (Colace Solution) 100 mg PRN DAILY PRN PO CONSTIPATION Last administered on 08/17/19at 11:07; Start 08/17/19 at 10:30 Amlodipine Besylate (Norvasc) 5 mg DAILY PO ; Start 08/18/19 at 09:00 Active Scripts Active Vitals/I & O Vital Sign - Last 24 Hours 08/17/19 08/17/19 08/17/19 08/17/19 11:34 15:59 19:46 20:00 Temp 97.9 97.7 97.5 97.9 97.7 97.5 Pulse 83 75 82 Resp 21 18 18 B/P (MAP) 189/100 (129) 167/97 (120) 211/116 (147) Pulse Ox 96 98 96 O2 Delivery Room Air Room Air Room Air Room Air 08/17/19 08/18/19 08/18/19 23:44 02:55 07:00 Temp 97.7 98.2 98.5 97.7 98.2 98.5 Pulse 76 88 80 Resp 18 18 18 B/P (MAP) 187/64 (105) 152/85 (107) 151/93 (112) Pulse Ox 97 96 94 O2 Delivery Room Air Room Air Room Air Intake and Output 08/17/19 08/17/19 08/18/19 15:00 23:00 07:00 Intake Total 370 ml 360 ml 0 ml Balance 370 ml 360 ml 0 ml NEELA GANN MD Aug 18, 2019 09:49
[2019-08-18] MEDS: amLODIPine BESYLATE 5 MG TABLET PO SCH (10:28)
[2019-08-18] MEDS: DOCUSATE 100 MG/10 ML SOLUTION. PO PRN (10:28)
[2019-08-18] MEDS: ASPIRIN CHEWABLE 81 MG TABLET. PO SCH (10:28)
[2019-08-18 11:00] VITALS: BP 155/90
--- NOTE | 2019-08-18 15:09 | PDOC ---
PROGRESS NOTES Assessment Assessment IMPRESSION: Acute left paramedian frontoparietal lobe infarct. Hypertensive emergency, BP 235/121 mmHg. Hypertensive encephalopathy. Metabolic encephalopathy. Aphasia. Right hemiplegia. 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 HTN. RECOMMENDATIONS/PLAN: Continue ASA daily. Continue Lipitor HS. Echo. BP control. Treat medical diseases. OT/PT. Rehab. Discussed with his daughter and female partner at bedside on 08/18/19. Past Medical History Cardiovascular: HTN ENT: Other (Dental problems) Past Surgical History Tonsillectomy Family History Cancer Social History , works odd jobs at times, no tobacco or alcohol Allergies Coded Allergies: egg (Verified Allergy, Severe, Diarrhea, 08/12/19) melon (Verified Allergy, Severe, Diarrhea, 08/12/19) strawberry (Verified Allergy, Severe, Diarrhea, 08/12/19) Penicillins (Verified Allergy, Intermediate, 08/12/19) ROS Negative for fever, chills, weight loss, shortness of breath, chest pain, in digestion, hematochezia, melena, and dysuria. Full 14-point review of systems is negative. MEDICATIONS: Refer to [facility] PHYSICAL EXAMINATION: General appearance in subacute distress. HEENT: Normocephalic and nontraumatic. Eyes, nose, ears, and throat are unremarkable. Neck is supple. No lymphadenopathy. No Crepitus. Cardiovascular: S1, S2, regular rate and rhythm. Pulmonary: Clear to auscultation bilaterally. Abdomen: Bowel sounds are positive. Extremities: No rash, lesions, or edema. Restriction of range of motion in right UE and LE. NEUROLOGICAL EXAMINATION: Awake. Not fully oriented to time, place but knew person. PERRL. EOMI. CN: Right VII palsy, mild. Muscle tone: Decreased in right UE > LE. Within normal in left side. Muscle strength: 0 right UE, 2 right LE. 5- left side. DTR: 0-1 right side, 2 left side. Plantar reflex: Neutral response bilaterally Gait: Not able to walk. Sensory exam: Decreased in right UE. No obvious cerebellar signs elicited. F-T-N test fine in left hand. Objective Objective Vital Signs Date Time Temp Pulse Resp B/P (MAP) Pulse Ox O2 Delivery O2 Flow Rate FiO2 08/18/19 11:00 98.3 89 18 155/90 (111) 96 Room Air 98.3 08/17/19 08:00 2.0 Intake and Output 08/18/19 07:00 Intake Total 730 ml Balance 730 ml Intake Oral 730 ml # Voids 3 # Bowel Movements 2 Vitals Signs Vitals VS - Last 72 Hours, by Label Date Time Temp Pulse Resp B/P (MAP) Pulse Ox O2 Delivery O2 Flow Rate FiO2 08/18/19 11:00 98.3 89 18 155/90 (111) 96 Room Air 98.3 08/18/19 10:28 80 151/93 08/18/19 07:00 98.5 80 18 151/93 (112) 94 Room Air 98.5 08/18/19 02:55 98.2 88 18 152/85 (107) 96 Room Air 98.2 08/17/19 23:44 97.7 76 18 187/64 (105) 97 Room Air 97.7 08/17/19 20:00 Room Air 08/17/19 19:46 97.5 82 18 211/116 (147) 96 Room Air 97.5 08/17/19 15:59 97.7 75 18 167/97 (120) 98 Room Air 97.7 08/17/19 11:34 97.9 83 21 189/100 (129) 96 Room Air 97.9 08/17/19 08:00 Room Air 2.0 08/17/19 07:00 98.5 80 18 177/106 (129) 98 Room Air 98.5 Medication Medications Current Medications Amlodipine Besylate (Norvasc) 5 mg DAILY PO Last administered on 08/18/19at 10:28; Start 08/18/19 at 09:00 Comment Review of Relevant I have reviewed the following items lavon (where applicable) has been applied. GÓMEZ BRANCH MD Aug 18, 2019 15:09
[2019-08-18 19:35] VITALS: BP 163/93
[2019-08-18] MEDS: ATORVASTATIN CALCIUM 10 MG TABLET. PO SCH (21:26)
[2019-08-18 23:40] VITALS: BP 183/90
[2019-08-19 03:40] VITALS: BP 172/94
[2019-08-19 07:30] VITALS: BP 194/103
--- NOTE | 2019-08-19 08:27 | SNU/HH DC ---
DISCHARGE ORDERS DISCHARGE INFORMATION: DISCHARGE DATE: Aug 18, 2019 FINAL DIAGNOSIS left sided frontal and parietal lobe infarct with sided hemiplegia , aphasia that has improved and dysphagia that has improved hypertension CONDITION ON DISCHARGE: Stable CODE STATUS: Code Status: DNR/DNI SNF: SNF STAY <30 DAYS: Yes POST DISCHARGE ORDERS: ACTIVITY ORDERS: Activity as tolerated DIET AFTER DISCHARGE: Low Sodium 2 gm CHECKS AFTER DISCHARGE: CHECKS AFTER DISCHARGE: Check blood press - daily TREATMENT/EQUIPMENT ORDERS: ADAPTIVE EQUIPMENT NEEDED: Wheelchair Physical Therapy For: Evalulation/Treatment Occupational Therapy For: Evaluation/Treatment Speech Language Pathology For: Evaluation/Treatment BLUE DOMINGUEZ MD Aug 19, 2019 08:27
--- NOTE | 2019-08-19 09:01 | SNU/HH DC ---
DISCHARGE ORDERS DISCHARGE INFORMATION: DISCHARGE DATE: Aug 19, 2019 FINAL DIAGNOSIS left parietotemporal infarct hypertensive urgency CONDITION ON DISCHARGE: Stable CODE STATUS: Code Status: DNR/DNI ALF: SNF STAY <30 DAYS: Yes POST DISCHARGE ORDERS: ACTIVITY ORDERS: Activity as tolerated DIET AFTER DISCHARGE: Low Sodium 2 gm CHECKS AFTER DISCHARGE: CHECKS AFTER DISCHARGE: Check blood press - daily, Check blood sugar, ac/hs TREATMENT/EQUIPMENT ORDERS: ADAPTIVE EQUIPMENT NEEDED: Wheelchair Physical Therapy For: Evalulation/Treatment Occupational Therapy For: Evaluation/Treatment Speech Language Pathology For: Evaluation/Treatment DISCHARGE MEDICATIONS: Home Meds Active Scripts Amlodipine Besylate (AMLODIPINE BESYLATE) 5 Mg Tablet, 5 MG PO DAILY for htn for 90 Days, #90 TAB Prov:RENU HYDE MD 08/18/19 Docusate Sodium (DOCU LIQUID) 50 Mg/5 Ml Liquid, 100 MG PO PRN DAILY PRN for CONSTIPATION for 30 Days, LIQUID Prov:RENU HYDE MD 08/18/19 Aspirin (ASPIRIN) 81 Mg Tab.chew, 324 MG PO DAILYWBKFT for cva for 365 Days, #1460 TAB.CHEW Prov:RENU HYDE MD 08/18/19 Atorvastatin Calcium (ATORVASTATIN CALCIUM) 10 Mg Tablet, 10 MG PO QHS for chol for 30 Days, #30 TAB Prov:RENU HYDE MD 08/18/19 BLUE DOMINGUEZ MD Aug 19, 2019 09:01
--- NOTE | 2019-08-19 09:07 | DS ---
DATE OF DISCHARGE: 08/19/2019 HOSPITAL COURSE: The patient is a 69-year-old male patient, who was seen originally at [facility] Emergency Room with a complaint of difficulty with speech and lower extremity weakness and ataxia that he first noticed the morning of admission when he tried to get out of the bed. He has had a CT scan of the head, which showed that the patient has no acute intracranial hemorrhage. There is focal hyperattenuation within the left posterior temporal occipital lobe lesion terminate and has chronic-appearing bilateral cerebellar and left basal ganglia and left frontal periventricular infarcts. He was transferred to [facility], where an MRI was done, which basically showed that the patient has acute left paramedian frontoparietal lobe infarct. He has multiple supratentorial and infratentorial chronic infarcts and moderate sequelae of chronic microvascular ischemic disease. He has aphasia, dysphagia, and hemiplegia. He underwent video swallowing evaluation, showed the patient has no aspiration and therefore he is now on dysphagia to thin-liquid diet. His aphasia has improved, now able to talk; however, he continued to have right-sided hemiparesis and therefore, the patient was discharged to [facility] to continue the process of rehabilitation there. PHYSICAL EXAMINATION: GENERAL: When I saw him this morning, he was slightly pale, but no jaundice, cyanosis, or thyromegaly. No jugular venous distention. No lower limb edema. VITAL SIGNS: His heart rate was 73, blood pressure was 127/94, temperature was 98.4, respiratory rate was 17, and oxygen saturation was 95%. HEAD, EYES, EARS, NOSE, AND THROAT: Showed normocephalic, atraumatic. NECK: Supple. HEART: Showed normal first and second heart sounds with no gallop, rub, or murmur. CHEST: Clear to auscultation. No crepitation or rhonchi. ABDOMEN: Distended, soft, nontender. No guarding or rigidity. No organomegaly. All hernial orifice intact. Bowel sounds normal. NEUROLOGIC: He is awake, alert. All his cranial nerves are grossly intact. He is able to talk, although he continued to have difficulty finding words at times. He has right-sided hemiplegia. His intake over the last 24 hours was 713, output was recorded. LABORATORY DATA: His most recent lab work showed a serum sodium 140, potassium 3.7, chloride 103, bicarbonate 26, anion gap of 11, BUN of 17, creatinine 1.4, estimated GFR was 50 mL per minute. His glucose 156. Hemoglobin A1c was 6.9. Calcium was 9. Total bilirubin 1. AST, ALT, alkaline phosphatase are normal. Total protein was 8.2. Albumin was 3.8. His serum triglycerides were 87, cholesterol was 193, LDL was 134, VLDL was 17, HDL was 42 and pgppkekxplo-pw-AKH-cholesterol ratio was 4.6. His TSH was 2.530. DISCHARGE MEDICATIONS: The patient was discharged to [facility] [place] to continue on amlodipine besylate 5 mg once a day, aspirin 325 mg once a day, atorvastatin 10 mg at bedtime, and Colace 100 mg as needed for constipation. 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 We will instruct long-term facility to monitor his blood sugar and he might require treatment with oral hypoglycemic agent. BLUE DOMINGUEZ MD DR: ECTOR/elías JOB#: [id number] / [id number]
[2019-08-19] MEDS: amLODIPine BESYLATE 5 MG TABLET PO SCH (09:09)
[2019-08-19] MEDS: ASPIRIN CHEWABLE 81 MG TABLET. PO SCH (09:09)
--- NOTE | 2019-08-19 09:15 | PDOC ---
PROGRESS NOTES Subjective Subjective No new complaints. Objective Objective Vital Signs Date Time Temp Pulse Resp B/P (MAP) Pulse Ox O2 Delivery O2 Flow Rate FiO2 08/19/19 09:09 76 194/103 08/19/19 07:30 98.6 18 96 Room Air 98.6 08/17/19 08:00 2.0 Intake and Output 08/19/19 07:00 Intake Total 250 ml Balance 250 ml Intake Oral 250 ml # Voids 6 # Bowel Movements 1 Physical Exam Physical Exam He is alert,supine in bed and eating breakfast fed by his daughter. No change with his right hemiplegia except increased muscle tone,especially with his right lower extremity. Still no voluntary movement of right upper and lower extremities. Plan Plan of Care To SNF when medically stable. Comment Review of Relevant I have reviewed the following items lavon (where applicable) has been applied. Medications Current Medications Labetalol HCl (Trandate) 100 mg TID PO ; Start 08/12/19 at 21:00; Stop 08/13/19 at 08:18; Status DC Acetaminophen (Tylenol) 650 mg PRN Q6HRS PRN PO TEMP > 100.4F; Start 08/12/19 at 16:30 Acetaminophen (Tylenol Supp) 650 mg PRN Q4HRS PRN HI TEMP > 100.4F; Start 08/12/19 at 16:30 Aspirin (Ecotrin) 325 mg DAILYWBKFT PO Last administered on 08/16/19at 09:29; Start 08/13/19 at 08:00; Stop 08/17/19 at 10:27; Status DC Aspirin (Aspirin Rectal Supp) 300 mg PRN DAILY PRN HI IF UNABLE TO TAKE PO Last administered on 08/13/19at 11:00; Start 08/12/19 at 16:30 Labetalol HCl (Trandate) 100 mg 1X ONCE PO Last administered on 08/12/19at 16:45; Start 08/12/19 at 16:30; Stop 08/12/19 at 20:01; Status DC Barium Sulfate (Varibar Thin Liquid Apple) 148 gm 1X ONCE PO Last administered on 08/13/19at 13:45; Start 08/13/19 at 11:30; Stop 08/13/19 at 11:31; Status DC Atorvastatin Calcium (Lipitor) 10 mg QHS PO Last administered on 08/18/19at 21:26; Start 08/14/19 at 21:00 Hydralazine HCl (Apresoline Inj) 10 mg PRN Q4HRS PRN IVP ELEVATED BP, SEE COMMENTS Last administered on 08/16/19at 20:46; Start 08/14/19 at 13:30 Sodium Chloride (Normal Saline Flush) 10 ml QSHIFT PRN IV AFTER MEDS AND BLOOD DRAWS; Start 08/14/19 at 15:00 Lidocaine HCl (Xylocaine 2% Topical 5gm Tube) 1 eben 1X ONCE TP ; Start 08/14/19 at 15:00; Stop 08/14/19 at 15:06; Status DC Lidocaine HCl (Viscous Lidocaine) 15 ml 1X ONCE MM ; Start 08/14/19 at 15:00; Stop 08/14/19 at 15:06; Status DC Benzocaine (Hurricaine One) 2 spray 1X ONCE MM Last administered on 08/15/19at 13:38; Start 08/14/19 at 15:00; Stop 08/14/19 at 15:06; Status DC Ringer's Solution 1,000 ml @ 50 mls/hr Q20H IV Last administered on 08/15/19at 13:32; Start 08/15/19 at 07:00; Stop 08/15/19 at 18:59; Status DC Benzocaine (Hurricaine One) 1 spray STK-MED ONCE .ROUTE ; Start 08/15/19 at 12:43; Stop 08/15/19 at 12:44; Status DC Lidocaine HCl (Xylocaine 2% Topical 30gm Tube) 30 eben STK-MED ONCE TP ; Start 08/15/19 at 12:43; Stop 08/15/19 at 12:44; Status DC Lidocaine/ Epinephrine (LIDOCAINE 2%-EPI 1:100,000 multi-dose) 20 ml STK-MED ONCE .ROUTE ; Start 08/15/19 at 13:20; Stop 08/15/19 at 13:21; Status DC Propofol 20 ml @ As Directed STK-MED ONCE IV ; Start 08/15/19 at 13:41; Stop 08/15/19 at 13:41; Status DC Lidocaine/ Epinephrine (LIDOCAINE 2%-EPI 1:100,000 multi-dose) 20 ml 1X ONCE IJ Last administered on 08/15/19at 14:17; Start 08/15/19 at 14:15; Stop 08/15/19 at 14:16; Status DC Bisacodyl (Dulcolax Supp) 10 mg PRN DAILY PRN HI CONSTIPATION; Start 08/15/19 at 15:45 Magnesium Hydroxide (Milk Of Magnesia) 2,400 mg PRN DAILY PRN PO CONSTIPATION Last administered on 08/17/19at 11:07; Start 08/15/19 at 15:45 Aspirin (Children'S Aspirin) 324 mg DAILYWBKFT PO Last administered on 08/19/19at 09:09; Start 08/17/19 at 10:30 Docusate Sodium (Colace Solution) 100 mg PRN DAILY PRN PO CONSTIPATION Last administered on 08/18/19at 10:28; Start 08/17/19 at 10:30 Amlodipine Besylate (Norvasc) 5 mg DAILY PO Last administered on 08/19/19at 09:09; Start 08/18/19 at 09:00 Active Scripts Active Amlodipine Besylate 5 Mg Tablet 5 Mg PO DAILY 90 Days Docu Liquid (Docusate Sodium) 50 Mg/5 Ml Liquid 100 Mg PO PRN DAILY PRN 30 Days Aspirin 81 Mg Tab.chew 324 Mg PO DAILYWBKFT 365 Days Atorvastatin Calcium 10 Mg Tablet 10 Mg PO QHS 30 Days Vitals/I & O Vital Sign - Last 24 Hours 08/18/19 08/18/19 08/18/19 08/18/19 10:28 11:00 19:35 20:00 Temp 98.3 98.6 98.3 98.6 Pulse 80 89 74 Resp 17 B/P (MAP) 151/93 155/90 (111) 163/93 (116) Pulse Ox 96 98 O2 Delivery Room Air Room Air Room Air 08/18/19 08/19/19 08/19/19 08/19/19 23:40 03:40 07:30 09:09 Temp 97.4 98.4 98.6 97.4 98.4 98.6 Pulse 71 73 76 76 Resp 17 17 18 B/P (MAP) 183/90 (121) 172/94 (120) 194/103 (133) 194/103 Pulse Ox 97 95 96 O2 Delivery Room Air Room Air Room Air Intake and Output 08/18/19 08/18/19 08/19/19 15:00 23:00 07:00 Intake Total 50 ml 200 ml Balance 50 ml 200 ml NEELA GANN MD Aug 19, 2019 09:15
[2019-08-19 11:06] VITALS: BP 155/94
--- NOTE | 2019-08-19 13:20 | NUR ---
[place] [facility] [place] called to [facility] at fac[facility]iy. Pt transported by wheelchair van. Facility verbalized understanding of discharge instructions.
--- NOTE | 2019-08-19 14:09 | PDOC ---
PROGRESS NOTES Assessment Assessment Acute left paramedian frontoparietal lobe infarct. Hypertensive emergency, BP 235/121 mmHg. Hypertensive encephalopathy. Metabolic encephalopathy. Aphasia. Right hemiplegia. 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 HTN. RECOMMENDATIONS/PLAN: Continue ASA daily. Continue Lipitor HS. BP control. Treat medical diseases. Consulted Dr. Ross. OT/PT. Rehab. Discussed with his daughter at bedside on 08/19/19. Past Medical History Cardiovascular: HTN ENT: Other (Dental problems) Past Surgical History Tonsillectomy Family History Cancer Social History , works odd jobs at times, no tobacco or alcohol Allergies Coded Allergies: Egg (Verified Allergy, Severe, Diarrhea, 08/12/19) Melon (Verified Allergy, Severe, Diarrhea, 08/12/19) Delphi (Verified Allergy, Severe, Diarrhea, 08/12/19) Penicillins (Verified Allergy, Intermediate, 08/12/19) ROS Negative for fever, chills, weight loss, shortness of breath, chest pain, indigestion, hematochezia, melena, and dysuria. Full 14-point review of systems is negative. MEDICATIONS: Refer to [facility] PHYSICAL EXAMINATION: General appearance in subacute distress. HEENT: Normocephalic and nontraumatic. Eyes, nose, ears, and throat are unremarkable. Neck is supple. No lymphadenopathy. No Crepitus. Cardiovascular: S1, S2, regular rate and rhythm. Pulmonary: Clear to auscultation bilaterally. Abdomen: Bowel sounds are positive. Extremities: No rash, lesions, or edema. Restriction of range of motion in right UE and LE. NEUROLOGICAL EXAMINATION: Awake. Not fully oriented to time, but knew place and person. Expressive aphasia, improved. PERRL. EOMI. CN: Right VII palsy, mild. Muscle tone: Decreased in right UE > LE. Within normal in left side. Muscle strength: 0 right UE, 2 right LE. 5- left side. DTR: 0 right UE and 1 right LE, 2 left side. Plantar reflex: Neutral response bilaterally Gait: Not able to walk. Sensory exam: Decreased in right UE. No obvious cerebellar signs elicited. F-T-N test fine in left hand. Objective Objective Vital Signs Date Time Temp Pulse Resp B/P (MAP) Pulse Ox O2 Delivery O2 Flow Rate FiO2 08/19/19 11:06 99.0 78 18 155/94 (114) 96 Room Air 99.0 08/19/19 08:00 2.0 Intake and Output 08/19/19 07:00 Intake Total 250 ml Balance 250 ml Intake Oral 250 ml # Voids 6 # Bowel Movements 1 Vitals Signs Vitals VS - Last 72 Hours, by Label Date Time Temp Pulse Resp B/P (MAP) Pulse Ox O2 Delivery O2 Flow Rate FiO2 08/19/19 11:06 99.0 78 18 155/94 (114) 96 Room Air 99.0 08/19/19 09:09 76 194/103 08/19/19 08:00 Room Air 2.0 08/19/19 07:30 98.6 76 18 194/103 (133) 96 Room Air 98.6 08/19/19 03:40 98.4 73 17 172/94 (120) 95 Room Air 98.4 08/18/19 23:40 97.4 71 17 183/90 (121) 97 Room Air 97.4 08/18/19 20:00 Room Air 08/18/19 19:35 98.6 74 17 163/93 (116) 98 Room Air 98.6 08/18/19 11:00 98.3 89 18 155/90 (111) 96 Room Air 98.3 08/18/19 10:28 80 151/93 08/18/19 08:00 Room Air 08/18/19 07:00 98.5 80 18 151/93 (112) 94 Room Air 98.5 Comment Review of Relevant I have reviewed the following items lavon (where applicable) has been applied. GÓMEZ BRANCH MD Aug 19, 2019 14:09
== END 2019-08-19 13:20 | DRG 40 ==
LOC: 6 SOUTH 14:29 → UNDOADMIN 14:29 → 6 SOUTH 15:05 → 2 NORTH 15:05 → EDBD 15:50 → 2 NORTH 15:50 → 6 SOUTH 21:47
PROVIDERS: ADMIT Internal Medicine; ATTEND Internal Medicine
PROC: 0JH632Z Insertion of Monitoring Device into Chest Subcutaneous Tissue and Fascia, Percutaneous Approach (ICD-10-PCS; principal; 2019-08-12)
DX: I63.9 Cerebral infarction, unspecified (principal); G93.41 Metabolic encephalopathy; G81.91 Hemiplegia, unspecified affecting right dominant side; I16.1 Hypertensive emergency; Z82.49 Family history of ischemic heart disease and other diseases of the circulatory system; E11.649 Type 2 diabetes mellitus with hypoglycemia without coma; E78.5 Hyperlipidemia, unspecified; I10 Essential (primary) hypertension; Z91.14 Patient's other noncompliance with medication regimen; I48.91 Unspecified atrial fibrillation; Z79.82 Long term (current) use of aspirin; Z86.73 Personal history of transient ischemic attack (TIA), and cerebral infarction without residual deficits; Z88.0 Allergy status to penicillin; Z79.899 Other long term (current) drug therapy; Z79.4 Long term (current) use of insulin
CPT/HCPCS: 33282; 36415; 70450; 70551; 74230; 80053; 80061; 83036; 84443; 85027; 93306; 93312; 93325; 95816; C1764; J0360; J2704; J3490; J7120; 92526; 92610; 92611; 97530; 97535; G0378